=== PATIENT | female | born 1945 | race Caucasian/White ===

== ENCOUNTER 2018-03-08 13:08 | Outpatient (CLI) | payer MEDICARE, OTHER ==
--- NOTE | 2018-03-09 09:27 | Mammography Report ---
Reason: SCREENING MAMMO Procedure Date: 03/08/2018 Accession Number: [id number] / [id number] Procedure: SONU - Screening Mammo w/Milo CPT Code: FULL RESULT: EXAM: Screening Mammo w/Milo DATE: 03/08/2018 2:04 PM CLINICAL HISTORY: SCREENING MAMMO TECHNIQUE: Bilateral MLO and CC breast views COMPARISON: Mammogram 01/31/2015 FINDINGS: There are scattered fibroglandular densities. Right scar marker and clips are noted. There are benign-appearing calcifications. No dominant mass, architectural distortion, or concerning cluster of microcalcifications is seen. IMPRESSION: BI-RADS Category 2. Benign findings. Recommend annual screening mammogram. STANDARD QUALIFYING STATEMENTS: 1. This examination was not reviewed with the aid of Computer-Aided Detection (CAD). 2. A negative or benign imaging report should not delay biopsy if clinically suspicious findings are present. Consider surgical consultation if warrented. More than 5% of cancers are not identified by imaging. 3. Dense breasts may obscure an underlying neoplasm. 4. This examination was reviewed with the aid of 3D breast imaging (tomosynthesis).
== END 2018-03-08 13:09 | disposition home or self-care (01) ==
LOC: DI 13:08
PROVIDERS: ATTEND Nurse Practitioner Family
DX: Z12.31 Encounter for screening mammogram for malignant neoplasm of breast (principal)
CPT/HCPCS: 77063; 77067

== ENCOUNTER 2019-02-16 13:47 | Emergency (ER) | payer MEDICARE, OTHER ==
[2019-02-16] MEDS ORDERED: MORPHINE 10 MG/ML VIAL IVP STA (14:18)
[2019-02-16] MEDS ORDERED: ONDANSETRON 4 MG/2 ML VIAL IVP STA (14:18)
[2019-02-16] MEDS ORDERED: SODIUM CHLORIDE 0.9% 1,000 ML IV STA (14:18)
[2019-02-16 14:41] LABS: BASOPHILS % (AUTO) 0.6 %; EOSINOPHILS # (AUTO) 0.1 10^3/uL (0.0-0.7); EOSINOPHILS % (AUTO) 1.1 %; LYMPHOCYTES # (AUTO) 1.5 10^3/uL (1.5-3.5); MEAN CORPUSCULAR VOLUME 87.9 fL (81.0-99.0); MEAN PLATELET VOLUME 8.6 fL (7.9-10.8); MONOCYTES # (AUTO) 0.4 10^3/uL (0.0-1.0); MONOCYTES % (AUTO) 6.6 %; NEUTROPHILS # (AUTO) 4.4 10^3/uL (1.5-6.6); NEUTROPHILS % (AUTO) 68.4 %; PLT - PLATELET COUNT 262 10^3/uL (130-450); RED BLOOD COUNT 4.48 10^6/uL (4.20-5.40); RED CELL DISTRIBUTION WIDTH 12.9 % (12.0-15.0); WHITE BLOOD COUNT 6.4 x10^3/uL (4.8-10.8)
[2019-02-16 14:48] LABS: INR 1.1 (0.8-1.2); PT - PROTHROMBIN TIME 12.6 secs (9.9-12.6)
[2019-02-16 14:54] LABS: ALBUMIN/GLOBULIN RATIO 1.3 (1.0-2.2); CALCIUM 9.4 mg/dL (8.5-10.3); CREATININE 0.9 mg/dL (0.4-1.0); TOTAL PROTEIN 7.1 g/dL (6.7-8.2)
[2019-02-16] MEDS ORDERED: IOVERSOL 320 100 ML VIAL IVP ONE ×2 (15:11→15:27)
--- NOTE | 2019-02-16 15:32 | ED Physician Documentation ---
History of Present Illness - Stated complaint Stated Complaint: STOMACH PAIN - Chief complaint Chief Complaint: Abd Pain - Additonal information Additional information: This is a 73-year-old female with history of Mitral valve regurgitation, hiatal hernia, HTN, and possible biliary colic, who presents with epigastric pain after meals. Patient states that she ate some sweet meals and some rich meals yesterday and afterwards developed some pain in her epigastrium. She describes it as a dull ache, currently moderate in severity. She states she has had similar issues in the past and was diagnosed with biliary colic. She has some nausea but no vomiting. She denies urinary complaints. No chest pain or shortness of breath. 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 HEENT: Cataracts, Tonsil/Adenoidectomy - Present Medications Home Medications: Ambulatory Orders Medication Instructions Recorded Confirmed Atenolol 25 mg PO DAILY 10/01/14 01/04/16 Lisinopril 10 mg PO DAILY 10/01/14 01/04/16 - Allergies Allergies/Adverse Reactions: Allergies Allergy/AdvReac Type Severity Reaction Status Date / Time clindamycin Allergy Nausea Verified 02/16/19 14:27 formaldehyde Allergy Unknown Verified 02/16/19 14:27 lidocaine Allergy Unknown Verified 02/16/19 14:27 mercury (elemental) Allergy Unknown Verified 02/16/19 14:27 Penicillins Allergy Hives Verified 02/16/19 14:27 sulfite Allergy Unknown Verified 02/16/19 14:27 codeine AdvReac Nausea Verified 02/16/19 14:27 - Social History Does the pt smoke?: No Smoking Status: Never smoker Does the pt drink ETOH?: No Does the pt have substance abuse?: No - Immunizations Immunizations are current?: Yes - POLST Patient has POLST: No PD ED PE NORMAL - Vitals Vital signs reviewed: Yes - General General: Alert and oriented X 3, No acute distress - HEENT HEENT: PERRL - Neck Neck: Supple, no meningeal sign - Cardiac Cardiac: Other (Tachycardia, irregularly irregular rhythm) - Respiratory Respiratory: No respiratory distress, Clear bilaterally - Abdomen Abdomen: Other (Diffuse mild tenderness, more prominent in the epigastrium in the right lower quadrant.No guarding) - Derm Derm: Warm and dry - Extremities Extremities: No deformity - Neuro Neuro: Alert and oriented X 3, 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, No motor deficit, No sensory deficit - Psych Psych: Normal mood, Normal affect Results - Vitals Vitals: Vital Signs - 24 hr 02/16/19 02/16/19 02/16/19 13:59 16:06 16:25 Temperature 36.5 C Heart Rate 134 H 110 H 104 H Respiratory 18 20 20 Rate Blood Pressure 109/60 142/95 H 121/77 O2 Saturation 96 02/16/19 02/16/19 02/16/19 16:30 17:00 17:45 Temperature Heart Rate 111 H 101 H 132 H Respiratory 18 21 21 Rate Blood Pressure 117/83 H 140/125 H 125/79 O2 Saturation 97 97 02/16/19 02/16/19 02/16/19 18:00 18:30 19:00 Temperature 36.7 C Heart Rate 87 88 70 Respiratory 17 17 15 Rate Blood Pressure 112/78 109/77 111/54 L O2 Saturation 99 Oxygen O2 Source Room air - EKG (time done) 14:12 Other comments: Other comments (Rate 139, rhythm atrial fibrillation with rapid ventricular response. [place] is normal. There is no ST segment elevation or depression. Slight T wave inversion in V5 and V6. QTc 438) - Labs Labs: Laboratory Tests 02/16/19 02/16/19 02/16/19 14:35 14:35 14:35 WBC 6.4 RBC 4.48 Hgb 13.0 Hct 39.4 MCV 87.9 MCH 29.0 MCHC 33.0 RDW 12.9 Plt Count 262 MPV 8.6 Neut # (Auto) 4.4 Lymph # (Auto) 1.5 [place] # (Auto) 0.4 Eos # (Auto) 0.1 Baso # (Auto) 0.0 Absolute Nucleated RBC 0.00 Nucleated RBC % 0.0 PT 12.6 INR 1.1 Sodium 141 Potassium 4.2 Chloride 105 Carbon Dioxide 25 Anion Gap 11.0 BUN 20 Creatinine 0.9 Estimated GFR (MDRD) 61 L Glucose 122 H Calcium 9.4 Total Bilirubin 1.0 AST 19 ALT 15 Alkaline Phosphatase 51 Troponin I High Sens Total Protein 7.1 Albumin 4.0 Globulin 3.1 Albumin/Globulin Ratio 1.3 Lipase 30 Urine Color Urine Clarity Urine pH Ur Specific [place] Urine Protein Urine Glucose (UA) Urine Ketones Urine Occult Blood Urine Nitrite Urine Bilirubin Urine Urobilinogen Ur Leukocyte Esterase Urine RBC Urine WBC Ur Squamous Epith Cells Urine Bacteria Ur Microscopic Review Urine Culture Comments 02/16/19 02/16/19 14:35 17:45 WBC RBC Hgb Hct MCV MCH MCHC RDW Plt Count MPV Neut # (Auto) Lymph # (Auto) [place] # (Auto) Eos # (Auto) Baso # (Auto) Absolute Nucleated RBC Nucleated RBC % PT INR Sodium Potassium Chloride Carbon Dioxide Anion Gap BUN Creatinine Estimated GFR (MDRD) Glucose Calcium Total Bilirubin AST ALT Alkaline Phosphatase Troponin I High Sens 8.2 Total Protein Albumin Globulin Albumin/Globulin Ratio Lipase Urine Color LT. YELLOW Urine Clarity CLEAR Urine pH 8.0 H Ur Specific [place] <=1.005 Urine Protein NEGATIVE Urine Glucose (UA) NEGATIVE Urine Ketones 15 H Urine Occult Blood NEGATIVE Urine Nitrite NEGATIVE Urine Bilirubin NEGATIVE Urine Urobilinogen 0.2 (NORMAL) Ur Leukocyte Esterase TRACE H Urine RBC None Seen Urine WBC 0-3 Ur Squamous Epith Cells NONE SEEN Urine Bacteria None Seen Ur Microscopic Review INDICATED Urine Culture Comments INDICATED - Rads (name of study) CT abd/pelvis with IV contrast Radiology: See rad report PD MEDICAL DECISION MAKING - ED course Complexity details: considered differential (Gastritis, cholecystitis, biliary colic, cholelithiasis, ACS, dysrhythmia, atrial fibrillation, Electrolyte abnormality.) ED course: Patient presents with abdominal pain which is worsened after eating. On her exam she has some mild tenderness more in the epigastrium in the right lower quadrant. CT scan was performed and shows some uterine fibroids, no signs of gallbladder pathology or other acute abdominal pathology. Her laboratory studies are unrevealing. On repeat examination she is feeling well and her abdominal pain is resolved. Her abdomen is nontender. I discussed with her that she may have had some biliary colic, and she is to follow-up closely with her primary care provider on this. Given her pain has resolved and her abdomen is non-tender, no further imaging is needed today. I also discussed return precautions. Patient also has a history of GERD, and GERD/gastritis is another possible cause of her symptoms. Patient does have atrial fibrillation on the monitor, EKG is obtained and confirms atrial fibrillation. Troponin is negative. Patient is asymptomatic from this, she says occasionally she has mild lightheadedness, but none at this time. Troponin is negative. She states that when she takes her blood pressure Her machine will say "irregular", and she has noticed this for years. But she does not think that she has been previously diagnosed with atrial fibrillation. She was given a 5 mg push of metoprolol and her heart rate, which was initially in the 110s to 130s, came down nicely to the 70s to 90s. Patient is asymptomatic and would like to go home. She is already on atenolol. I discussed with her that she has a chads2-vasc score of 4 And I recommend that she starts anticoagulation. I explained the risk of stroke, I also discussed the potential risks of blood thinners, in her case I think the benefits outweigh the risks, however patient does not want to start anticoagulation. She does understand that she is at risk for stroke, and I had an in-depth conversation with her about this. She decided that she will call her primary care provider and discuss this further with him tomorrow. I recommended that she get an appointment with her primary care and/or her teletype clerk as soon as possible. I also discussed return precautions including lightheadedness, chest pain, shortness of breath, or any other concerning symptoms. Patient agreed and was discharged home. Departure - Departure Disposition: 01 Home, Self Care Clinical Impression: Abdominal pain Qualifiers: Abdominal location: epigastric Qualified Code(s): R10.13 - Epigastric pain Atrial fibrillation Qualifiers: Atrial fibrillation type: unspecified Qualified Code(s): I48.91 - Unspecified atrial fibrillation Condition: Good Instructions: ED Abdominal Pain Unkn Cause, ED Afib Follow-Up: Сергей Elias MD [Primary Care Provider] - Tomorrow (Call to schedule an appointment and discuss atrial fibrillation and anticoagulation/blood thinners) Comments: You were seen today for abdominal pain, your CT scan does not show an obvious cause of your pain. Your labs are reassuring. You were in atrial fibrillation and it is unclear if you were diagnosed with this in the past. Given your risk factors for stroke, I recommend that that you start a blood thinner to prevent stroke. You did not want to start this today, but I recommend that you talk with your primary care provider and make an appointment as soon as possible to discuss this further with them. You may also follow-up with a teletype clerk. If you develop lightheadedness, fainting, feelings of your heart racing, or chest pain, return to the emergency department. Discharge Date/Time: 02/16/19 19:20
--- NOTE | 2019-02-16 15:42 | CT Report ---
Reason: RLQ PAIN Procedure Date: 02/16/2019 Accession Number: [id number] / [id number] Procedure: CT - Abdomen/Pelvis W CPT Code: FULL RESULT: EXAM: CT ABDOMEN AND PELVIS EXAM DATE: 02/16/2019 03:22 PM. CLINICAL HISTORY: RLQ PAIN. COMPARISONS: None. TECHNIQUE: Routine helical CT imaging was performed through the abdomen and pelvis. IV contrast: CE. Enteric contrast: No. Reconstructions: Coronal and sagittal. In accordance with CT protocol optimization, one or more of the following dose reduction techniques were utilized for this exam: automated exposure control, adjustment of mA and/or KV based on patient size, or use of iterative reconstructive technique. FINDINGS: Lung Bases: Unremarkable. Liver: Normal. No masses. Gallbladder/Bile Ducts: Unremarkable. Spleen: Normal. Pancreas: Normal. Adrenal Glands: Normal. Kidneys: Normal. No masses or hydronephrosis. Peritoneal Cavity/Bowel: Normal. No free fluid, free air or adenopathy. No masses or acute inflammatory process. The appendix is not visualized, but there is no evidence of appendicitis. No evidence of diverticulitis. Pelvic Organs: Multiple small calcified uterine fibroids. In addition, there is an approximate 3.5 cm diameter broad-based exophytic left fundal subserosal fibroid seen best on coronal image 40, series 6. Vasculature: No aneurysms or other significant abnormality. Bones: No significant abnormality. Other: None. IMPRESSION: 1. Multiple uterine fibroids as discussed above. 2. Otherwise negative examination. RADIA
[2019-02-16] MEDS ORDERED: METOPROLOL 5 MG/5 ML VIAL IVP STA ×2 (15:58→18:13)
[2019-02-16 17:55] LABS: BILIRUBIN,URINE NEGATIVE (NEGATIVE); CLARITY,URINE CLEAR (CLEAR); GLUCOSE, URINE (UA) NEGATIVE (NEGATIVE); KETONES,URINE (UA) 15 mg/dL (NEGATIVE); LEUKOCYTE ESTERASE, URINE TRACE (NEGATIVE); NITRITE,URINE NEGATIVE (NEGATIVE); OCCULT BLOOD,URINE NEGATIVE (NEGATIVE); PROTEIN,URINE NEGATIVE (NEGATIVE); UROBILINOGEN,URINE 0.2 (NORMAL) E.U./dL (NORMAL)
[2019-02-16 18:04] LABS: BACTERIA,URINE None Seen /HPF (None Seen); RBC,URINE None Seen /HPF (0-5); SQUAMOUS EPITHELIAL CELL,UR NONE SEEN (<= Few)
[2019-02-16 19:20] VITALS: BP 111/54
== END 2019-02-16 19:20 | disposition home or self-care (01) ==
LOC: ED 13:47
DX: R10.13 Epigastric pain (principal); I48.91 Unspecified atrial fibrillation; I10 Essential (primary) hypertension; I34.0 Nonrheumatic mitral (valve) insufficiency; K21.9 Gastro-esophageal reflux disease without esophagitis; D25.9 Leiomyoma of uterus, unspecified
CPT/HCPCS: 36415; 74177; 80053; 81001; 83690; 84484; 85025; 85610; 87086; 93005; 96361; 96374; 96375; 99284; Q9967; 81003

== ENCOUNTER 2019-03-05 13:14 | Emergency (ER) | payer MEDICARE, OTHER ==
[2019-03-05] MEDS ORDERED: MAG HYDROX/AL HYDROX/SIMETH 30 ML UDC PO STA (13:50)
[2019-03-05] MEDS ORDERED: LIDOCAINE VISCOUS 2% 15 ML UDC MM STA (13:50)
--- NOTE | 2019-03-05 13:51 | ED Physician Documentation ---
PD HPI ABD PAIN - Stated complaint Stated Complaint: ABD PX - Chief complaint Chief Complaint: Abd Pain - History obtained from History obtained from: Patient - History of Present Illness Timing - onset: Yesterday (73-year-old woman with history of atrial fibrillation, not on anticoagulation has been having trouble with epigastric pain. She was seen here 2 weeks ago for it. Work-up was negative. She was feeling better but last night started to get pain again. It got much worse today after eating applesauce. Its epigastric nonradiating pain. It is sharp. 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 HEENT: Cataracts, Tonsil/Adenoidectomy - Present Medications Home Medications: Ambulatory Orders Medication Instructions Recorded Confirmed Atenolol 25 mg PO DAILY 10/01/14 01/04/16 Lisinopril 10 mg PO DAILY 10/01/14 01/04/16 Hydrocodone/Acetaminophen 1 - 2 each PO Q6H PRN #14 tablet 03/05/19 [Hydrocodon-Acetaminophen 5-325] Ondansetron Odt [Zofran] 4 mg TL Q6H PRN #10 tablet 03/05/19 - Allergies Allergies/Adverse Reactions: Allergies Allergy/AdvReac Type Severity Reaction Status Date / Time Penicillins Allergy Hives Verified 02/16/19 14:27 clindamycin AdvReac Nausea Verified 03/05/19 13:22 codeine AdvReac Nausea Verified 02/16/19 14:27 formaldehyde AdvReac Unknown Verified 03/05/19 13:22 lidocaine AdvReac Unknown Verified 03/05/19 13:22 mercury (elemental) AdvReac Unknown Verified 03/05/19 13:22 sulfite AdvReac Unknown Verified 03/05/19 13:22 - Social History Does the pt smoke?: No Smoking Status: Never smoker Does the pt drink ETOH?: No Does the pt have substance abuse?: No - Immunizations Immunizations are current?: Yes - POLST Patient has POLST: No PD ED PE NORMAL - Vitals Vital signs reviewed: Yes - General General: Alert and oriented X 3, No acute distress - HEENT HEENT: PERRL, EOMI - Neck Neck: Supple, no meningeal sign, No bony TTP - Cardiac Cardiac: Other (Irregularly irregular, no murmur) - Respiratory Respiratory: No respiratory distress, Clear bilaterally - Abdomen Abdomen: Soft, Non tender - Back Back: No CVA TTP, No spinal TTP - Derm Derm: Normal color, Warm and dry - Extremities Extremities: No edema, No calf tenderness / cord - Neuro Neuro: Alert and oriented X 3, Normal speech Results - Vitals Vitals: Vital Signs - 24 hr 03/05/19 13:17 Temperature 36.8 C Heart Rate 78 Respiratory 18 Rate Blood Pressure 148/81 H O2 Saturation 99 Oxygen O2 Source Room air - EKG (time done) 1420 Rate: Rate (enter#) (77) Rhythm: NSR (Frequent PACs) [place]: Normal Intervals: Normal [place] QRS: Normal Ischemia: Non specific changes Computer interpretation: Agree with computer - Labs Labs: Laboratory Tests 03/05/19 03/05/19 03/05/19 13:58 13:58 13:58 WBC 5.3 RBC 4.54 Hgb 12.9 Hct 39.7 MCV 87.4 MCH 28.4 MCHC 32.5 RDW 13.0 Plt Count 254 MPV 8.4 Neut # (Auto) 3.5 Lymph # (Auto) 1.3 L [place] # (Auto) 0.4 Eos # (Auto) 0.1 Baso # (Auto) 0.1 Absolute Nucleated RBC 0.00 Nucleated RBC % 0.0 Sodium 137 Potassium 4.2 Chloride 99 L Carbon Dioxide 26 Anion Gap 12.0 BUN 14 Creatinine 0.9 Estimated GFR (MDRD) 61 L Glucose 108 H Calcium 9.3 Total Bilirubin 1.0 AST 20 ALT 15 Alkaline Phosphatase 48 Troponin I High Sens 5.0 Total Protein 7.4 Albumin 4.2 Globulin 3.2 Albumin/Globulin Ratio 1.3 Lipase 30 TSH Thyroxine (T4) Free T3 pg/mL 03/05/19 03/05/19 13:58 13:58 WBC RBC Hgb Hct MCV MCH MCHC RDW Plt Count MPV Neut # (Auto) Lymph # (Auto) [place] # (Auto) Eos # (Auto) Baso # (Auto) Absolute Nucleated RBC Nucleated RBC % Sodium Potassium Chloride Carbon Dioxide Anion Gap BUN Creatinine Estimated GFR (MDRD) Glucose Calcium Total Bilirubin AST ALT Alkaline Phosphatase Troponin I High Sens Total Protein Albumin Globulin Albumin/Globulin Ratio Lipase TSH 1.48 Thyroxine (T4) 10.16 Free T3 pg/mL 3.53 - Rads (name of study) RUQ sono Radiology: EMP read contemporaneously (packed with stones) PD MEDICAL DECISION MAKING - ED course ED course: 73-year-old woman with recurrent upper abdominal pain, she is not tender and her labs are benign. She has a gallbladder that is packed full of gallstones and no evidence of cardiac decompensation. She is referred to a surgeon for likely biliary colic. Departure - Departure Disposition: Home, Self Care Clinical Impression: Biliary colic Condition: Good Record reviewed to determine appropriate education?: Yes Instructions: ED Abdominal Pain Gallstone Poss Follow-Up: Sara Vinson MD [Provider Admit Priv/Credential] - Prescriptions: Hydrocodone/Acetaminophen [Hydrocodon-Acetaminophen 5-325] 1 - 2 each PO Q6H PRN #14 tablet PRN Reason: pain Ondansetron Odt [Zofran] 4 mg TL Q6H PRN #10 tablet PRN Reason: Nausea / Vomiting Comments: Follow-up with the surgeon as soon as possible. Eat a very light diet until then. Return for new worsening symptoms.
[2019-03-05 14:04] LABS: BASOPHILS # (AUTO) 0.1 10^3/uL (0.0-0.1); BASOPHILS % (AUTO) 0.9 %; EOSINOPHILS # (AUTO) 0.1 10^3/uL (0.0-0.7); EOSINOPHILS % (AUTO) 2.4 %; HGB - HEMOGLOBIN 12.9 g/dL (12.0-16.0); LYMPHOCYTES # (AUTO) 1.3 10^3/uL (1.5-3.5); LYMPHOCYTES % (AUTO) 24.4 %; MEAN CORPUSCULAR HEMOGLOBIN 28.4 pg (27.0-31.0); MEAN CORPUSCULAR HGB CONC 32.5 g/dL (32.0-36.0); MEAN CORPUSCULAR VOLUME 87.4 fL (81.0-99.0); MEAN PLATELET VOLUME 8.4 fL (7.9-10.8); MONOCYTES # (AUTO) 0.4 10^3/uL (0.0-1.0); MONOCYTES % (AUTO) 7.1 %; NEUTROPHILS # (AUTO) 3.5 10^3/uL (1.5-6.6); PLT - PLATELET COUNT 254 10^3/uL (130-450); RED BLOOD COUNT 4.54 10^6/uL (4.20-5.40); WHITE BLOOD COUNT 5.3 x10^3/uL (4.8-10.8)
[2019-03-05 14:17] LABS: ALBUMIN 4.2 g/dL (3.2-5.5); ALBUMIN/GLOBULIN RATIO 1.3 (1.0-2.2); CALCIUM 9.3 mg/dL (8.5-10.3); CREATININE 0.9 mg/dL (0.4-1.0); TOTAL PROTEIN 7.4 g/dL (6.7-8.2)
[2019-03-05] MEDS ORDERED: ONDANSETRON ODT 4 MG TABLET TL STA (14:34)
[2019-03-05 15:02] LABS: T4 (THYROXINE) 10.16 ug/dL (6.09-12.23)
[2019-03-05 15:05] LABS: THYROID STIMULATING HORMONE 1.48 uIU/mL (0.34-5.60)
--- NOTE | 2019-03-05 16:21 | Ultrasound Report ---
Reason: upper abd pain Procedure Date: 03/05/2019 Accession Number: [id number] / [id number] Procedure: US - Abdomen Limited CPT Code: FULL RESULT: EXAM: ABDOMEN ULTRASOUND LIMITED, RIGHT UPPER QUADRANT EXAM DATE: 03/05/2019 03:56 PM. CLINICAL HISTORY: Epigastric and upper abdominal pain since January, worsening since yesterday. Nausea. History of breast cancer. COMPARISON: ABDOMEN/PELVIS W/ 02/16/2019 3:14 PM. TECHNIQUE: Real-time scanning was performed with static images obtained. FINDINGS: Liver: Normal in size with heterogeneous echotexture.12.7 cm. Main portal vein flow: Hepatopetal. Gallbladder: Complete shadowing of the gallbladder fossa with no internal detail. The gallbladder wall does not appear thickened. Overlying tenderness noted. Biliary System: CBD measures 4 mm. No intrahepatic or extrahepatic ductal dilatation. Other: The visualized pancreas and right kidney are unremarkable. IMPRESSION: Complete shadowing of the gallbladder fossa likely due to a gallbladder full of stones. RADIA
[2019-03-05 16:51] VITALS: BP 176/87
== END 2019-03-05 17:06 | disposition home or self-care (01) ==
LOC: ED 13:14
DX: K80.50 Calculus of bile duct without cholangitis or cholecystitis without obstruction (principal); I10 Essential (primary) hypertension
CPT/HCPCS: 36415; 76705; 80053; 83690; 84436; 84443; 84481; 84484; 85025; 93005; 99284; A9270; Q0162

== ENCOUNTER 2019-04-04 09:42 | Day surgery (SDC) | payer MEDICARE, OTHER ==
[~2019-04-04 09:42] MED LIST: LEVOFLOXACIN IV ONE
[2019-04-04 09:56] VITALS: BP 144/78
--- NOTE | 2019-04-04 10:46 | CONSULTATION NOTE ---
Consultation Report: Patient is in the Afib RVR Hr upto 140's Bp stable. Reports being in AFib for a "coupe of months". 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 She has not see a field operations farm manager. We are getting an EKG. Dr Vinson was made aware and she agrees with not going forward with the surgery. Pt needs a thorough cardiac evaluation prior to her surgery. Dr Vinson was call the hospitalist and have them see the patient for further followup.
== END 2019-04-04 09:43 | disposition home or self-care (01) ==
LOC: SDS 09:42
PROVIDERS: ATTEND Surgery
DX: I48.91 Unspecified atrial fibrillation (principal); Z53.09 Procedure and treatment not carried out because of other contraindication; K80.20 Calculus of gallbladder without cholecystitis without obstruction; I10 Essential (primary) hypertension; I34.0 Nonrheumatic mitral (valve) insufficiency; K44.9 Diaphragmatic hernia without obstruction or gangrene
CPT/HCPCS: 93005

== ENCOUNTER 2019-04-04 10:55 | Emergency (ER) | payer MEDICARE, OTHER ==
[2019-04-04 11:35] LABS: BASOPHILS % (AUTO) 0.6 %; EOSINOPHILS # (AUTO) 0.1 10^3/uL (0.0-0.7); EOSINOPHILS % (AUTO) 1.8 %; HGB - HEMOGLOBIN 13.3 g/dL (12.0-16.0); LYMPHOCYTES # (AUTO) 1.2 10^3/uL (1.5-3.5); LYMPHOCYTES % (AUTO) 18.5 %; MEAN CORPUSCULAR HEMOGLOBIN 29.6 pg (27.0-31.0); MEAN CORPUSCULAR HGB CONC 33.2 g/dL (32.0-36.0); MEAN CORPUSCULAR VOLUME 89.1 fL (81.0-99.0); MEAN PLATELET VOLUME 8.7 fL (7.9-10.8); MONOCYTES # (AUTO) 0.4 10^3/uL (0.0-1.0); MONOCYTES % (AUTO) 7.1 %; NEUTROPHILS # (AUTO) 4.5 10^3/uL (1.5-6.6); NEUTROPHILS % (AUTO) 71.7 %; PLT - PLATELET COUNT 240 10^3/uL (130-450); RED CELL DISTRIBUTION WIDTH 13.5 % (12.0-15.0); WHITE BLOOD COUNT 6.2 x10^3/uL (4.8-10.8)
[2019-04-04 11:45] LABS: ALBUMIN 3.9 g/dL (3.2-5.5); ALBUMIN/GLOBULIN RATIO 1.3 (1.0-2.2); CALCIUM 9.8 mg/dL (8.5-10.3); CREATININE 1.1 mg/dL (0.4-1.0); TOTAL PROTEIN 6.8 g/dL (6.7-8.2)
--- NOTE | 2019-04-04 12:27 | XRAY Report ---
Reason: Irregular HR Procedure Date: 04/04/2019 Accession Number: [id number] / [id number] Procedure: XR - Chest 1 View X-Ray CPT Code: 04385 Final Report FULL RESULT: EXAM: CHEST RADIOGRAPHY EXAM DATE: 04/04/2019 12:02 PM. CLINICAL HISTORY: Irregular heart rate. COMPARISON: CHEST 2 VIEW PA/LAT 01/04/2016 10:55 AM. TECHNIQUE: 1 view. FINDINGS: Lungs/Pleura: No focal opacities evident. No pleural effusion. No pneumothorax. Mediastinum: Within exam limitations, the cardiomediastinal contour is stable in size and configuration with calcification of the aortic arch. Other: None. IMPRESSION: No acute cardiopulmonary abnormality. RADIA
--- NOTE | 2019-04-04 12:43 | ED Physician Documentation ---
History of Present Illness - Stated complaint Stated Complaint: AFIB/SENT BY SDS - Chief complaint Chief Complaint: Cardiac - Additonal information Additional information: This is a 73-year-old female history of mitral valve regurgitation, hiatal hernia, cholelithiasis, hypertension, who presents after being sent to the emergency department from the preop area and due to atrial fibrillation with RVR. I saw patient just over 1 month ago, she was found to be in atrial fibrillation but she declined starting anticoagulants at that time despite having a a chads 2 Vasc score which put her at moderate risk for a stroke. She has not been able see her sat tutor yet to further discuss her atrial fibrillation. Today she went in to have a cholecystectomy, she was found to have atrial fibrillation with RVR with heart rate up to 140. She had a normal blood pressure and an is overall asymptomatic, other than she feels slightly lower energy than usual. She states that she attributes to her lower energy to change in her diet, she is eating less than usual because she is been trying to avoid foods that worsen her biliary colic. She denies any chest pain or shortness of breath, no cough. Review of Systems Constitutional: denies: Fever Throat: denies: Dental pain / toothache Cardiac: denies: Chest pain / pressure Respiratory: denies: Dyspnea : denies: Dysuria PD PAST MEDICAL HISTORY - Past Medical History Cardiovascular: Hypertension, Atrial fibrillation, Murmur Respiratory: Shortness of breath Endocrine/Autoimmune: None GI: GERD, Chronic diarrhea : Incontinence, Chronic bladder infection HEENT: Chronic vision loss, Other Psych: None Musculoskeletal: Osteoarthritis, Fibromyalgia, Chronic back pain Derm: None - Past Surgical History Past Surgical History: Yes General: Colonoscopy, EGD, Other Ortho: 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: Other HEENT: Cataracts, Tonsil/Adenoidectomy - Present Medications Home Medications: Ambulatory Orders Medication Instructions Recorded Confirmed Atenolol 12.5 mg PO BID 10/01/14 04/04/19 Lisinopril 10 mg PO DAILY 10/01/14 04/04/19 Bismuth Subsalicylate 1 tab PO ONCE PRN 03/23/19 04/04/19 [Pepto-Bismol] Lactobacillus Acidophilus 1 each PO DAILY 03/23/19 04/04/19 [Probiotic Acidophilus] Magnesium 0.5 tsp PO DAILY 03/23/19 04/04/19 Apixaban [Eliquis] 5 mg PO BID #30 tab.ds.pk 04/04/19 - Allergies Allergies/Adverse Reactions: Allergies Allergy/AdvReac Type Severity Reaction Status Date / Time Penicillins Allergy Hives Verified 02/16/19 14:27 acetaminophen [From Vicodin] AdvReac GERD, Verified 03/23/19 14:20 abdominal pain aluminum AdvReac Unknown Verified 03/23/19 14:20 cephalexin [From Keflex] AdvReac stomach Verified 03/23/19 14:20 pain ciprofloxacin [From Cipro] AdvReac stomach Verified 03/23/19 14:20 pain clindamycin AdvReac Nausea Verified 03/05/19 13:22 codeine AdvReac Nausea Verified 02/16/19 14:27 erythromycin base AdvReac diarrhea, Verified 03/23/19 14:20 bladder pain formaldehyde AdvReac Unknown Verified 03/05/19 13:22 hydrocodone [From Vicodin] AdvReac GERD, Verified 03/23/19 14:20 abdominal pain ibuprofen [From Advil] AdvReac stomach Verified 03/23/19 14:20 pain lidocaine AdvReac Nausea, Verified 03/23/19 14:20 low BP meloxicam AdvReac GERD, Verified 03/23/19 14:20 abdominal pain mercury (elemental) AdvReac Unknown Verified 03/05/19 13:22 metronidazole [From Flagyl] AdvReac stomach Verified 03/23/19 14:20 pain naproxen AdvReac stomach Verified 03/23/19 14:20 pain pantoprazole [From Protonix] AdvReac GERD, Verified 03/23/19 14:20 diarrhea sulfite AdvReac Unknown Verified 03/05/19 13:22 - Social History Does the pt smoke?: No Smoking Status: Never smoker Does the pt drink ETOH?: No Does the pt have substance abuse?: No - Immunizations Immunizations are current?: Yes - POLST Patient has POLST: No PD ED PE NORMAL - Vitals Vital signs reviewed: Yes - General General: Alert and oriented X 3 - HEENT HEENT: Atraumatic - Neck Neck: Supple, no meningeal sign - Cardiac Cardiac: Other (Irregularly irregular rhythm, normal rate.) - Respiratory Respiratory: No respiratory distress, Clear bilaterally - Abdomen Abdomen: Normal bowel sounds, Soft, Non tender, Non distended - Extremities Extremities: No deformity - Neuro Neuro: Alert and oriented X 3, 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, No motor deficit, No sensory deficit, Normal speech Results - Vitals Vitals: Oxygen O2 Source Room air - EKG (time done) 11:17 Other comments: Other comments (Rate 80, rhythm a-fib, NO ST segment changes or T wave inversions) - Labs Labs: Laboratory Tests 04/04/19 04/04/19 04/04/19 11:29 11:29 11:29 WBC 6.2 RBC 4.50 Hgb 13.3 Hct 40.1 MCV 89.1 MCH 29.6 MCHC 33.2 RDW 13.5 Plt Count 240 MPV 8.7 Neut # (Auto) 4.5 Lymph # (Auto) 1.2 L [place] # (Auto) 0.4 Eos # (Auto) 0.1 Baso # (Auto) 0.0 Absolute Nucleated RBC 0.00 Nucleated RBC % 0.0 Sodium 135 Potassium 4.2 Chloride 99 L Carbon Dioxide 25 Anion Gap 11.0 BUN 12 Creatinine 1.1 H Estimated GFR (MDRD) 48 L Glucose 110 H Calcium 9.8 Magnesium 2.0 Total Bilirubin 1.0 AST 23 ALT 20 Alkaline Phosphatase 42 Troponin I High Sens B-Natriuretic Peptide Total Protein 6.8 Albumin 3.9 Globulin 2.9 Albumin/Globulin Ratio 1.3 Lipase 31 TSH 04/04/19 04/04/19 04/04/19 11:29 11:29 11:29 WBC RBC Hgb Hct MCV MCH MCHC RDW Plt Count MPV Neut # (Auto) Lymph # (Auto) [place] # (Auto) Eos # (Auto) Baso # (Auto) Absolute Nucleated RBC Nucleated RBC % Sodium Potassium Chloride Carbon Dioxide Anion Gap BUN Creatinine Estimated GFR (MDRD) Glucose Calcium Magnesium Total Bilirubin AST ALT Alkaline Phosphatase Troponin I High Sens 6.4 B-Natriuretic Peptide 178 H Total Protein Albumin Globulin Albumin/Globulin Ratio Lipase TSH 1.19 - Rads (name of study) CXR Radiology: Other (No acute cardiopulmonary abnormality) PD MEDICAL DECISION MAKING - ED course Complexity details: considered differential (ACS, dysrhtyhmia, A-fib, stroke risk) ED course: Pt is asymptomatic but was sent in from pre-op for a-fib with RVR that resolved without intervention. EKG confirms a-fib, which she has had for months and likely even longer given she has noted irregular pulses on her BP cuff for years. Troponin negative, BNP very slightly elevated, remainder of labs unrevealing. She is rate controlled. I discussed that she needs to follow with her PCP and sat tutor. I discussed her stroke vs bleed risk and went over her [id number] score with her. She would like to start anticoagulation and I prescribed eliquis with discussion of its risks and the need for close follow up and further discussion with her sat tutor and PCP. I spoke with her surgeon who wants her cleared by cardiology before she can have her cholecystectomy - this information passed on to patient. Return precautions discussed and patient was discharged home. Departure - Departure Disposition: 01 Home, Self Care Clinical Impression: Atrial fibrillation Instructions: ED Afib Follow-Up: Сергей Elias MD [Primary Care Provider] - (Call today for follow up as soon as possible and cardiac referral) Prescriptions: Apixaban [Eliquis] 5 mg PO BID #30 tab.ds.pk Comments: You were seen today because of atrial fibrillation prior to her surgery. You are at a moderate risk of stroke, I recommend starting the Eliquis/apixaban medication for this. Please discuss this medication in depth with your primary care provider as well as your sat tutor. I am prescribing you 2 weeks worth of the medication, you will need to get refills from your primary care provider after this. This is a blood thinner, and when you take it you are at increased risk for bleeding. Call your primary care provider today to establish follow-up as soon as possible, ideally with an a week, and for referral to sat tutor. You need to have cardiac work-up performed prior to receiving your gallbladder surgery. If you develop chest pain, shortness of breath, or other concerning symptoms return to the emergency department. Discharge Date/Time: 04/04/19 14:23
[2019-04-04] MEDS ORDERED: APIXABAN 5 MG TABLET PO STA (13:51)
[2019-04-04 14:02] VITALS: BP 113/62
== END 2019-04-04 14:23 | disposition home or self-care (01) ==
LOC: ED 10:55
DX: I48.91 Unspecified atrial fibrillation (principal); K80.20 Calculus of gallbladder without cholecystitis without obstruction; I10 Essential (primary) hypertension; I34.0 Nonrheumatic mitral (valve) insufficiency; K44.9 Diaphragmatic hernia without obstruction or gangrene
CPT/HCPCS: 36415; 71045; 80053; 83690; 83735; 83880; 84443; 84484; 85025; 93005; 99283; A9270

== ENCOUNTER 2019-05-03 14:49 | Outpatient (CLI) | payer MEDICARE, OTHER ==
[2019-05-03 15:21] LABS: ALBUMIN 4.2 g/dL (3.2-5.5); ALBUMIN/GLOBULIN RATIO 1.3 (1.0-2.2); BILIRUBIN,TOTAL 1.2 mg/dL (0.2-1.0); CALCIUM 9.8 mg/dL (8.5-10.3); CREATININE 0.9 mg/dL (0.4-1.0); TOTAL PROTEIN 7.5 g/dL (6.7-8.2)
[2019-05-03 16:01] LABS: BASOPHILS # (AUTO) 0.1 10^3/uL (0.0-0.1); BASOPHILS % (AUTO) 0.7 %; EOSINOPHILS # (AUTO) 0.2 10^3/uL (0.0-0.7); EOSINOPHILS % (AUTO) 2.3 %; LYMPHOCYTES # (AUTO) 1.6 10^3/uL (1.5-3.5); MEAN CORPUSCULAR HEMOGLOBIN 29.6 pg (27.0-31.0); MEAN CORPUSCULAR HGB CONC 32.5 g/dL (32.0-36.0); MEAN CORPUSCULAR VOLUME 91.1 fL (81.0-99.0); MEAN PLATELET VOLUME 9.2 fL (7.9-10.8); MONOCYTES # (AUTO) 0.5 10^3/uL (0.0-1.0); MONOCYTES % (AUTO) 7.3 %; NEUTROPHILS # (AUTO) 4.6 10^3/uL (1.5-6.6); NEUTROPHILS % (AUTO) 66.4 %; PLT - PLATELET COUNT 331 10^3/uL (130-450); RED BLOOD COUNT 4.39 10^6/uL (4.20-5.40); RED CELL DISTRIBUTION WIDTH 14.6 % (12.0-15.0)
== END 2019-05-03 14:50 | disposition home or self-care (01) ==
LOC: LAB 14:49
PROVIDERS: ATTEND Physician Assistant Medical
DX: Z13.6 Encounter for screening for cardiovascular disorders (principal); Z79.899 Other long term (current) drug therapy
CPT/HCPCS: 36415; 80053; 85025

== ENCOUNTER 2019-05-16 07:15 | Day surgery (SDC) | payer MEDICARE, OTHER ==
[~2019-05-16 07:15] MED LIST changes: -LEVOFLOXACIN IV ONE; +levoFLOXacin 500 MG/100 ML 500 MG/100 ML BAG IV ONE
[2019-05-16] MEDS ORDERED: LACTATED RINGERS 1,000 ML IV ONE (08:05)
[2019-05-16] MEDS ORDERED: BUPIVACAINE 0.5% PF 30 ML VIAL ONE (08:30)
--- NOTE | 2019-05-16 08:31 | ANESTHESIA ---
Pre-Anesthesia VS, & Labs - Diagnosis cholelithiasis - Procedure laparoscopic cholecystectomy Vital Signs: Temp Pulse Resp BP Pulse Ox 36.8 C 100 16 109/95 H 100 05/16/19 07:45 05/16/19 07:45 05/16/19 07:45 05/16/19 07:45 05/16/19 07:45 Height 5 ft 9 in Weight (kg) 103.8 kg Body Mass Index 34.2 - NPO >8 hours - Is Patient ?: No - Lab Results Lab results reviewed: Yes Home Medications and Allergies Home Medications: Ambulatory Orders Apixaban [Eliquis] 2.5 mg PO BID 05/03/19 Metoprolol Tartrate 1 mg PO BID 05/03/19 Omeprazole 20 mg PO DAILY 05/04/19 Apixaban [Eliquis] 2.5 mg PO BID 05/03/19 Metoprolol Tartrate 1 mg PO BID 05/03/19 Omeprazole 20 mg PO DAILY 05/04/19 Allergies/Adverse Reactions: Allergies Allergy/AdvReac Type Severity Reaction Status Date / Time Penicillins Allergy Hives Verified 02/16/19 14:27 acetaminophen [From Vicodin] AdvReac GERD, Verified 03/23/19 14:20 abdominal pain aluminum AdvReac Unknown Verified 03/23/19 14:20 cephalexin [From Keflex] AdvReac stomach Verified 03/23/19 14:20 pain ciprofloxacin [From Cipro] AdvReac stomach Verified 03/23/19 14:20 pain clindamycin AdvReac Nausea Verified 03/05/19 13:22 codeine AdvReac Nausea Verified 02/16/19 14:27 erythromycin base AdvReac diarrhea, Verified 03/23/19 14:20 bladder pain formaldehyde AdvReac Unknown Verified 03/05/19 13:22 hydrocodone [From Vicodin] AdvReac GERD, Verified 03/23/19 14:20 abdominal pain ibuprofen [From Advil] AdvReac stomach Verified 03/23/19 14:20 pain lidocaine AdvReac Nausea, Verified 03/23/19 14:20 low BP meloxicam AdvReac GERD, Verified 03/23/19 14:20 abdominal pain mercury (elemental) AdvReac Unknown Verified 03/05/19 13:22 metronidazole [From Flagyl] AdvReac stomach Verified 03/23/19 14:20 pain naproxen AdvReac stomach Verified 03/23/19 14:20 pain pantoprazole [From Protonix] AdvReac GERD, Verified 03/23/19 14:20 diarrhea sulfite AdvReac Unknown Verified 03/05/19 13:22 Anes History & Medical History - Anesthetic History Anesthesia Complications: reports: No previous complications Family history of Anesthesia Complications: Denies Family history of Malignant Hyperthermia: Denies - Medical History Cardiovascular: reports: Hypertension, Atrial fibrillation, Murmur Pulmonary: reports: Shortness of breath Gastrointestinal: reports: GERD, Chronic diarrhea Urinary: reports: Incontinence, Chronic bladder infection Musculoskeletal: reports: Osteoarthritis, Fibromyalgia, Chronic back pain Endocrine/Autoimmune: reports: None Skin: reports: None Smoking Status: Never smoker - Surgical History General: Colonoscopy, EGD, Other Eyes Ears Nose Throat (EENT): Cataracts, Tonsil/Adenoidectomy Gynecologic: Other Orthopedic: Knee replacement Exam General: Alert, Oriented x3, Cooperative Dental: Dentures full Upper, Dentures full Lower Mouth Openin Fingerbreadth Neck Mobility: Normal Mallampati classification: II Thyromental Distance: 4-6 cm Respiratory: Lungs clear, Normal breath sounds Cardiovascular: Regular rate Mental/Cognitive Status: Alert/Oriented X3, Normal for patient Plan Anesthesia Type: General Regional Block: Per Surgeon's request for Post Op pain control Consent for Procedure(s) Verified and Reviewed: Yes Code Status: Attempt Resuscitation ASA classification: 3-Severe systemic disease Is this case an emergency?: No
[2019-05-16] MEDS ORDERED: NEOSTIGMINE 1 MG/1 ML 10 ML MDV IVP ONE (08:52)
[2019-05-16] MEDS ORDERED: KETOROLAC 30 MG/ML VIAL IVP ONE (08:52)
[2019-05-16] MEDS ORDERED: DEXAMETHASONE 4 MG/ML VIAL IVP ONE (08:52)
[2019-05-16] MEDS ORDERED: METOPROLOL 5 MG/5 ML VIAL IVP ONE (08:52)
[2019-05-16] MEDS ORDERED: PROPOFOL 200 MG/20 ML VIAL IVP ONE (08:52)
[2019-05-16] MEDS ORDERED: GLYCOPYRROLATE 1 MG/5 ML VIAL IVP ONE (08:52)
[2019-05-16] MEDS ORDERED: PHENYLEPHRINE 50 MG/5 ML VIAL IV ONE (08:52)
[2019-05-16] MEDS ORDERED: ROCURONIUM 50 MG/5 ML VIAL IVP ONE (08:52)
[2019-05-16] MEDS ORDERED: ACETAMINOPHEN 1,000 MG/100 ML 100 ML IV ONE (08:52)
[2019-05-16] MEDS ORDERED: ONDANSETRON 4 MG/2 ML VIAL IVP ONE (08:52)
[2019-05-16] MEDS ORDERED: fentaNYL 250 MCG/5 ML VIAL IVP ONE (08:52)
[2019-05-16] MEDS ORDERED: METOCLOPRAMIDE 10 MG/2 ML VIAL IVP ONE (08:52)
[2019-05-16] MEDS ORDERED: BUPIVACAINE 0.5% PF 30 ML VIAL INFIL ONE (09:24)
[2019-05-16] MEDS ORDERED: ACETAMINOPHEN 325 MG TABLET PO PRN (09:42)
[2019-05-16] MEDS ORDERED: ONDANSETRON 4 MG/2 ML VIAL IVP PRN (09:42)
[2019-05-16] MEDS ORDERED: oxyCODONE 5 MG TABLET PO PRN (09:42)
[2019-05-16] MEDS ORDERED: SUGAMMADEX 200 MG/2 ML VIAL IVP ONE (09:52)
--- NOTE | 2019-05-16 10:04 | OPERATIVE REPORT ---
Operative Report - General Procedure Date: 05/16/19 Planned Procedure: Laparoscopic Cholecystectomy Pre-Op Diagnosis: Symptomatic cholelithiasis Procedure Performed: Laparoscopic Cholecystectomy Post Op Diagnosis: Symptomatic cholelithiasis - Procedure Note Primary Surgeon: Karel Anesthesia Provider: NISHI Robles Anesthesia Technique: General ET tube, Local Pathology: Gall bladder in formalin to pathology IV Fluids (mL): 250 Estimated Blood Loss (mL): 10 Findings: Gall bladder filled with small stones Complications: None apparent - Other Other Information/Narrative: After obtaining informed consent the patient is brought to the operating room and placed in the supine position on the operating table. Following successful induction of general endotracheal anesthesia, appropriate padding of all bony prominences, and placement of appropriate monitors, the abdomen was prepped and draped in the standard surgical fashion. A timeout was held per scope protocol. All elements of the surgical safety checklist were followed before, during, and after the procedure. Following infiltration with local anesthetic to create a field block, an incision was created inferior to the umbilicus and carried down through the skin and subcutaneous tissue to reveal the fascia below. 2-0 Vicryl retention sutures were placed on either side of the midline and the abdomen was entered under direct vision using a 15 blade scalpel. A 10 mm blunt Nagel balloon trocar was placed in the abdominal cavity and it was insufflated to 15 mmHg pressure. The patient was placed in reverse Trendelenburg position with the left side rotated toward the floor. A second trocar, 5 mm, was placed in the midepigastrium under direct vision and after anesthetization of the surrounding skin.A third trocar, also 5 mm was placed in the right upper quadrant for retraction of the gallbladder and a fourth 1 just medial to that as a working port as well. The gallbladder was examined. It was adherent to the surrounding structures including the omentum and the right colon. These structures were carefully dissected free from the surface of the gallbladder using a mixture of blunt and sharp dissection. The fundus of the gallbladder was then grasped and elevated up over the liver revealing the cholecysto hepatoduodenal ligament. The neck of the gallbladder was retracted laterally and the cystic duct and artery were carefully identified. The common duct was visualized but not skeletonized. The cystic duct was clipped 3 times proximally and once distally and divided, the cystic artery was clipped twice proximally, once distally, and divided. The gallbladder was then liberated from its bed in the liver using cautery. It was placed in an Endo Catch bag and removed via the umbilical port with a camera in the epigastric position. The camera was replaced in the umbilical position and the abdomen was checked for hemostasis. It was irrigated with warm saline solution and aspirated free of all fluid and particulate matter. The trochars were then removed under direct vision and the abdomen desufflated. The umbilical incision was closed with interrupted Vicryl suture and Monocryl was placed in all of the skin incisions. All sponge, needle, and instrument counts were correct at the conclusion of the case. The patient was allowed awaken from anesthesia without difficulty and taken to the postanesthesia care unit in good condition.
[2019-05-16 10:57] VITALS: BP 117/68
== END 2019-05-16 07:16 | disposition home or self-care (01) ==
LOC: SDS 07:15
PROVIDERS: ATTEND Surgery
PROC: 0FT44ZZ Resection of Gallbladder, Percutaneous Endoscopic Approach (ICD-10-PCS; principal; 2019-05-16 08:45)
DX: K80.64 Calculus of gallbladder and bile duct with chronic cholecystitis without obstruction (principal); I48.91 Unspecified atrial fibrillation; I10 Essential (primary) hypertension; R01.1 Cardiac murmur, unspecified; Z85.3 Personal history of malignant neoplasm of breast; E88.81 Metabolic syndrome and other insulin resistance
CPT/HCPCS: 47562; J0131; J2765; J3010; J7120

== ENCOUNTER 2019-05-30 12:39 | Inpatient (IN) | payer MEDICARE, OTHER ==
[2019-05-30 13:49] LABS: BASOPHILS # (AUTO) 0.1 10^3/uL (0.0-0.1); BASOPHILS % (AUTO) 0.9 %; EOSINOPHILS # (AUTO) 0.1 10^3/uL (0.0-0.7); EOSINOPHILS % (AUTO) 1.8 %; HGB - HEMOGLOBIN 11.9 g/dL (12.0-16.0); LYMPHOCYTES # (AUTO) 1.3 10^3/uL (1.5-3.5); LYMPHOCYTES % (AUTO) 19.5 %; MEAN CORPUSCULAR HEMOGLOBIN 29.8 pg (27.0-31.0); MEAN CORPUSCULAR HGB CONC 32.2 g/dL (32.0-36.0); MEAN CORPUSCULAR VOLUME 92.5 fL (81.0-99.0); MEAN PLATELET VOLUME 8.8 fL (7.9-10.8); MONOCYTES # (AUTO) 0.5 10^3/uL (0.0-1.0); MONOCYTES % (AUTO) 7.2 %; NEUTROPHILS # (AUTO) 4.8 10^3/uL (1.5-6.6); NEUTROPHILS % (AUTO) 70.3 %; PLT - PLATELET COUNT 261 10^3/uL (130-450); RED BLOOD COUNT 3.99 10^6/uL (4.20-5.40); RED CELL DISTRIBUTION WIDTH 15.1 % (12.0-15.0); WHITE BLOOD COUNT 6.8 x10^3/uL (4.8-10.8)
[2019-05-30 14:02] LABS: ALBUMIN 3.9 g/dL (3.2-5.5); ALBUMIN/GLOBULIN RATIO 1.3 (1.0-2.2); BILIRUBIN,TOTAL 1.2 mg/dL (0.2-1.0); CALCIUM 9.8 mg/dL (8.5-10.3); CREATININE 0.9 mg/dL (0.4-1.0); TOTAL PROTEIN 6.8 g/dL (6.7-8.2)
--- NOTE | 2019-05-30 14:24 | XRAY Report ---
Reason: dyspnea Procedure Date: 05/30/2019 Accession Number: [id number] / [id number] Procedure: XR - Chest 2 View X-Ray CPT Code: 68144 Final Report FULL RESULT: EXAM: CHEST RADIOGRAPHY EXAM DATE: 05/30/2019 02:10 PM. CLINICAL HISTORY: Dyspnea. Shortness of breath x1 month, worse for the past 2 weeks. COMPARISON: CHEST 1 VIEW 04/04/2019 11:36 AM CHEST 2 VIEW PA/LAT 01/04/2016 10:55 AM. TECHNIQUE: 2 views. FINDINGS: Lungs/Pleura: There are small bilateral pleural effusions. No pneumothorax. No focal pulmonary consolidation. Lung volumes are normal. Mediastinum: Heart and mediastinal contours are unremarkable. There is mild atherosclerotic calcification of the aortic arch. Other: No acute osseous abnormality. There are moderate degenerative changes of the left glenohumeral joint. IMPRESSION: Small bilateral pleural effusions. No focal pulmonary consolidation. RADIA
[2019-05-30] MEDS ORDERED: METOPROLOL 5 MG/5 ML VIAL IVP STA ×2 (14:56→22:18)
--- NOTE | 2019-05-30 14:59 | ED Physician Documentation ---
History of Present Illness - Stated complaint Stated Complaint: SOA/MEDICATION ISSUES - Chief complaint Chief Complaint: Cardiac - Additonal information Additional information: This is a 74-year-old female with a history of atrial fibrillation, on Eliquis and metoprolol, presents with elevated heart rate as well as shortness of breath. Patient was on metoprolol 50 mg twice a day but she was concerned that it was causing her to have some esophageal discomfort, and she thought it may have some other side effects she was not aware of, so she self tapered down to 25 mg twice a day. Over the last 3 to 4 weeks she has had some gradual in creasing shortness of breath and swelling of her lower extremities. She denies any chest pain. She follows with Dr. Laurent of [facility] cardiology. She is not currently on any furosemide. She does not recall being told she has any heart failure. Her shortness of breath is worse when she lies down flat or when she is active. I do not see any past echocardiograms on file for her. 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 HEENT: Cataracts, Tonsil/Adenoidectomy - Present Medications Home Medications: Ambulatory Orders Medication Instructions Recorded Confirmed Apixaban [Eliquis] 5 mg PO BID 05/03/19 05/31/19 Metoprolol Tartrate [Lopressor] 25 mg PO BID 05/30/19 05/30/19 - Allergies Allergies/Adverse Reactions: Allergies Allergy/AdvReac Type Severity Reaction Status Date / Time Penicillins Allergy Hives Verified 05/30/19 13:00 aluminum AdvReac Unknown Verified 05/30/19 13:00 cephalexin [From Keflex] AdvReac stomach Verified 05/30/19 13:00 pain ciprofloxacin [From Cipro] AdvReac stomach Verified 05/30/19 13:00 pain clindamycin AdvReac Nausea Verified 05/30/19 13:00 codeine AdvReac Nausea Verified 05/30/19 13:00 erythromycin base AdvReac diarrhea, Verified 05/30/19 13:00 bladder pain formaldehyde AdvReac Unknown Verified 05/30/19 13:00 hydrocodone [From Vicodin] AdvReac GERD, Verified 05/30/19 13:00 abdominal pain ibuprofen [From Advil] AdvReac stomach Verified 05/30/19 13:00 pain lidocaine AdvReac Nausea, Verified 05/30/19 13:00 low BP meloxicam AdvReac GERD, Verified 05/30/19 13:00 abdominal pain mercury (elemental) AdvReac Unknown Verified 05/30/19 13:00 metronidazole [From Flagyl] AdvReac stomach Verified 05/30/19 13:00 pain naproxen AdvReac stomach Verified 05/30/19 13:00 pain pantoprazole [From Protonix] AdvReac GERD, Verified 05/30/19 13:00 diarrhea sulfite AdvReac Unknown Verified 05/30/19 13:00 - Social History Does the pt smoke?: No Smoking Status: Never smoker Does the pt drink ETOH?: No Does the pt have substance abuse?: No - Immunizations Immunizations are current?: Yes - POLST Patient has POLST: No PD ED PE NORMAL - Vitals Vital signs reviewed: Yes - General General: Alert and oriented X 3, No acute distress - HEENT HEENT: PERRL - Neck Neck: Supple, no meningeal sign - Cardiac Cardiac: Other (Tachycardia, irregularly irregular rhythm) - Respiratory Respiratory: No respiratory distress, Other (Bibasilar crackles.) - Abdomen Abdomen: Soft, Non tender, Non distended - Derm Derm: Warm and dry - Extremities Extremities: Other (2+ edema of the BLE) - Neuro Neuro: Alert and oriented X 3 - Psych Psych: Normal mood, Normal affect Results - Vitals Vitals: Oxygen O2 Source Room air - EKG (time done) 14:06 Other comments: Other comments (Rate 139, rhythm atrial fibrillation, there is no ST segment elevation or depression.) - Labs Labs: Laboratory Tests 05/30/19 05/30/19 05/30/19 13:40 13:40 13:40 WBC 6.8 RBC 3.99 L Hgb 11.9 L Hct 36.9 L MCV 92.5 MCH 29.8 MCHC 32.2 RDW 15.1 H Plt Count 261 MPV 8.8 Neut # (Auto) 4.8 Lymph # (Auto) 1.3 L [place] # (Auto) 0.5 Eos # (Auto) 0.1 Baso # (Auto) 0.1 Absolute Nucleated RBC 0.00 Nucleated RBC % 0.0 Sodium 138 Potassium 4.0 Chloride 103 Carbon Dioxide 23 Anion Gap 12.0 BUN 11 Creatinine 0.9 Estimated GFR (MDRD) 61 L Glucose 141 H Calcium 9.8 Total Bilirubin 1.2 H AST 21 ALT 17 Alkaline Phosphatase 34 L Troponin I High Sens B-Natriuretic Peptide 445 H Total Protein 6.8 Albumin 3.9 Globulin 2.9 Albumin/Globulin Ratio 1.3 Lipase 35 05/30/19 13:40 WBC RBC Hgb Hct MCV MCH MCHC RDW Plt Count MPV Neut # (Auto) Lymph # (Auto) [place] # (Auto) Eos # (Auto) Baso # (Auto) Absolute Nucleated RBC Nucleated RBC % Sodium Potassium Chloride Carbon Dioxide Anion Gap BUN Creatinine Estimated GFR (MDRD) Glucose Calcium Total Bilirubin AST ALT Alkaline Phosphatase Troponin I High Sens 2.7 B-Natriuretic Peptide Total Protein Albumin Globulin Albumin/Globulin Ratio Lipase - Rads (name of study) CXR Radiology: Other (Small bilateral pleural effusions) PD MEDICAL DECISION MAKING - ED course Complexity details: considered differential (HF, A-fib with RVR, pulmonary edema, pleural effusion, ACS, PNA, PTX, electrolyte disturbance) ED course: Pt on exam is tachycardic and in a-fib with RVR. EKG does not show convincing signs of ischemia. XR shows bilateral small pleural effusions and signs of mild congestion. Troponin is negative and she has no chest pain, ACS highly unlikely. No unilateral leg swelling or chest pain, and pt is on anticoagulants, making PE unlikely. BNP is elevated consistent with HF. When patient got up to ambulate to the bathroom, she desaturated to high 70s. She did quickly recovered to the 90s and when she sitting at rest upright she is not hypoxic, but with movement she desaturates. She was given 2 doses of metroprolol IV with some reduction in her heart rate. Overall she appears to have a-fib with RVR, which may in part be poorly controlled due to her self-reduction of her beta-mariajose. This may in turn be causing symptoms of HF. It is also possible that she has underlying cardiac dysfunction that has worsened and triggered her RVR. She was given 20mg furosemide IV and was admitted to the hospital for further evaluation and treatment. Pt was updated and is in agreement with the plan. Departure - Departure Disposition: 66 [facility] DC/Xfer Clinical Impression: Hypoxia Atrial fibrillation Qualifiers: Atrial fibrillation type: unspecified Qualified Code(s): I48.91 - Unspecified atrial fibrillation Condition: Good Discharge Date/Time: 05/30/19 18:35
[2019-05-30] MEDS ORDERED: FUROSEMIDE 40 MG/4 ML VIAL IVP STA (15:00)
[2019-05-30] MEDS ORDERED: MORPHINE 2 MG/ML CARPUJECT IVP PRN (17:51)
[2019-05-30] MEDS ORDERED: PROCHLORPERAZINE 10 MG/2 ML VIAL IVP PRN (17:51)
--- NOTE | 2019-05-30 18:47 | HISTORY & PHYSICAL EXAMINATION ---
DATE OF SERVICE: 05/30/2019 Physician: Geraldine Duarte MD HISTORY OF PRESENT ILLNESS: This is a 74-year-old white female with history of paroxysmal atrial fibrillation and hypertension. In the past she was on HCTZ/triamterene and lisinopril for blood pressure control. She recently underwent elective cholecystectomy for symptomatic gallbladder disease. When the elective gallbladder surgery was initially scheduled, in the preop area, her EKG showed atrial fibrillation with rapid ventricular response and the surgery was canceled and she was sent to the emergency room for managing the atrial fibrillation with rapid ventricular response. By that point, her heart rate is already slowed down to 80 in atrial fibrillation and she was started on new Eliquis 5 mg b.i.d. because of a CHADS score of 2 or greater. Patient was also told to get cardiac clearance before undergoing the cholecystectomy. She says she underwent a 7-day heart monitor and had an echo, she does not know either of these results. She did not have a stress test; she remembers having a stress test last done approximately 5 years ago and told it was normal. During that time she also needed 2 courses of treatment with nitrofurantoin for a UTI. Patient was then rescheduled for the lap-andrez, after getting clearance from cardiology and did undergo successful laparoscopic cholecystectomy, which was done approximately 2 weeks ago. She then started to decrease her dose of metoprolol tartrate 50 mg b.i.d. on her own down to 25 mg b.i.d. because of "stomach pain on the higher dose and because she does not like to take medications." She dose see a Beveller Operator in [place]. Also, her Eliquis dose, which was 5 mg b.i.d. is now listed at being 2.5 mg b.i.d. and she does admit she decreased her dose because of nose bleeds. She also started to notice about 2 weeks of worsening leg edema and dyspnea on exertion and then new orthopnea more recently. There has been no chest pain. She presented to the emergency room because of the shortness of breath and found to be in atrial fibrillation with rapid ventricular response at a rate of 130 and with activity her oxygen saturation dropped into the 70% range. She started to get treatment in the ER for rate control with IV beta mariajose pushes, which has decreased her heart rate from 130 down to 115 and blood pressure has been in the 100-120 systolic range. She also got a dose of iv Lasix. She is being admitted for atrial fibrillation with rapid ventricular response, medication noncompliance, new onset of heart failure. PAST MEDICAL HISTORY 1. Paroxysmal atrial fibrillation since approximately 3 months ago. There are several EKGs here since February 2019, and most she is in A. fib, on one she is in sinus rhythm. 2. Hypertension Hx, currently "soft" BP. 3. Status post cholecystectomy 2 weeks ago. ALLERGIES (These mostly produce side effects, not rashes or anaphylactic reactions) 1. PENICILLIN. 2. TYLENOL. 3. ALUMINUM. 4. KEFLEX. 5. CIPRO. 6. CLINDAMYCIN 7. CODEINE. 8. ERYTHROMYCIN. 9. FORMALDEHYDE. 10. VICODIN. 11. ADVIL. 12. LIDOCAINE. 13. MELOXICAM. 14. MERCURY. 15. FLAGYL. 16. NAPROSYN. 17. PROTONIX. 18. SULFITES. MEDICATIONS AT HOME 1. Metoprolol tartrate 50 mg b.i.d., but she was taking 25 mg b.i.d. 2. Eliquis was supposed to be 5 mg b.i.d., but she was taking 2.5 mg b.i.d. FAMILY HISTORY: Noncontributory. SOCIAL HISTORY: She is a nonsmoker, drinks no alcohol, no IV drug use history. REVIEW OF SYSTEMS: She had an EGD approximately 5 years ago and did not have H. pylori. She wonders about having another EGD because so many medications giving her some type of stomach pain. She has had a history of a mitral regurgitation murmur, GERD, urinary incontinence and prior UTIs, arthritis with back pain and fibromyalgia pain, knee replacement in the past and cataract surgery in the past. A comprehensive review of systems was performed and the pertinent positives are listed, the rest are negative. PHYSICAL EXAMINATION GENERAL: White female who is in no distress at rest. VITAL SIGNS: Blood pressure 104-120/70-90, heart rate is now 110-115 in atrial fibrillation/flutter, afebrile, room air saturation was 97%, but with activity dropped into 70's%. HEENT: Unremarkable. NECK: Without JVD, sitting vertically. LUNGS: Diminished breath sounds at both bases. No rales or wheezes. HEART: Heart sounds are tachycardic. There is a 2/6 systolic murmur. ABDOMEN: Soft, non-distended, nontender. Normal bowel sounds. EXTREMITIES: 4+ edema to the buttocks. No clubbing or cyanosis. NEUROLOGIC: Grossly intact. LABORATORY DATA: Normal electrolytes. Normal BUN and creatinine. Normal liver tests. High sens-troponin normal at 2.7. BNP high at 445, the last one was about 178. Normal lipase. White blood count 6.8, hemoglobin 11.9, platelet count normal at 261. No INR was done, but this would be not reliable in a patient on Eliquis. No urinalysis was done. DIAGNOSTIC DATA: Chest x-ray: Mild bilateral pleural effusions. EKG: Atrial fib-flutter with a rapid rate and variable block, low voltage in the limb leads. Low voltage is new compared to the EKG from 1 month ago. IMPRESSION AND DIAGNOSES 1. Atrial fibrillation with rapid ventricular response. 2. Paroxysmal atrial fibrillation. 3. New onset of congestive heart failure, which could be tachycardia-induced, or related to her longstanding mitral regurgitation, or from HTN. It must have been developing over time, since the leg edema has progressed to her buttocks. 4. Hypoxia. 5. Medication noncompliance. 6. History of hypertension. PLAN: Admit the patient to a telemetry bed. Continue with IV medication pushes for rate control using either iv Metoprolol or Cardizem. If necessary, a Cardizem drip may need to be started or digoxin used, if blood pressure is low. Resume her doses of beta-mariajose, eventually titrating up to the higher dose that was planned. Resume her higher dose of Eliquis as well since, by correct dosing: her age is less than 80, weight is greater than 70 kilograms and creatinine is normal. Begin IV b.i.d. diuretics, follow I's and O's, daily weights, BMP and magnesium labs daily. Obtain an Echo to evaluate LV and RV contractility and for a pericardial effusion, given the new low voltage on EKG. Add supplemental oxygen and eventually titrate down to off if possible, as she diureses. If possible, obtain the recent cardiology clearance notes to determine what workup she has had regarding her heart. Since the troponin is normal and there has been no chest pain and she was recently cleared for surgery, an acute coronary syndrome is not suspected now, and a repeat troponin is not planned. Patient needs medication compliance education. She also needs CHF teaching regarding medications, diet, and she may be a candidate for the CHF cardiac rehab program. CODE STATUS: FULL CODE. DEEP VENOUS THROMBOSIS PROPHYLAXIS: Pharmacotherapy. ATTESTATION: Patient is expected to be discharged or transferred to another facility within 96 hours: Yes. cc: Сергей Elias MD TD: 05/30/2019 18:18 MTDD
[2019-05-30] MEDS: FUROSEMIDE 20 MG/2 ML VIAL IVP SCH (20:42)
[2019-05-30] MEDS: FAMOTIDINE 20 MG TABLET PO SCH ×3 (20:42→21:45)
[2019-05-30] MEDS: METOPROLOL SUCCINATE 25 MG TABLET PO SCH (20:42)
[2019-05-30] MEDS: SODIUM CHLORIDE FLUSH 0.9% 10 ML SYRINGE IVP PRN (20:46)
[2019-05-30] MEDS ORDERED: APIXABAN 2.5 MG PO SCH (21:00)
[2019-05-30] MEDS: APIXABAN 5 MG TABLET PO SCH (21:42)
[2019-05-31] MEDS: SODIUM CHLORIDE FLUSH 0.9% 10 ML SYRINGE IVP SCH ×3 (00:25→21:00)
[2019-05-31] MEDS: NYSTATIN POWDER 15 GM TOP SCH ×3 (00:25→21:03)
[2019-05-31 05:44] LABS: CALCIUM 9.5 mg/dL (8.5-10.3); CREATININE 0.9 mg/dL (0.4-1.0)
[2019-05-31] MEDS: FUROSEMIDE 20 MG/2 ML VIAL IVP SCH ×2 (06:48→14:28)
[2019-05-31] MEDS: SODIUM CHLORIDE FLUSH 0.9% 10 ML SYRINGE IVP PRN (06:48)
[2019-05-31] MEDS: FAMOTIDINE 20 MG TABLET PO SCH ×2 (08:31→20:59)
[2019-05-31] MEDS: METOPROLOL SUCCINATE 25 MG TABLET PO SCH ×2 (08:31→21:00)
[2019-05-31] MEDS: APIXABAN 5 MG TABLET PO SCH (08:31)
[2019-05-31] MEDS: diltiaZEM 30 MG TABLET PO SCH ×2 (09:25→14:28)
[2019-05-31] MEDS: SPIRONOLACTONE 25 MG TABLET PO SCH (09:25)
--- NOTE | 2019-05-31 12:44 | PHARMACY PROGRESS NOTE ---
- Best Possible Medication History Admit Date and Time: 05/30/19 1749 Processed by: Pharmacy Medication History completed: Yes Patient Interview: Completed Secondary Source(s): Pharmacy records, Insurance records As the person ultimately responsible for medication therapy, providers are able to order a medication from an existing home medication list in [facility] via the "Reconcile Routine" prior to Confirmation of that medication by residential direct support professional. Such practice is discouraged except when the physician, in their clinical judgment, deems that a medical need exists for a medication without regard to previous use.
--- NOTE | 2019-05-31 15:26 | PROVIDER PROGRESS NOTE ---
Assessment/Plan - Problem List (1) Atrial fibrillation with RVR Assessment/Plan: At rest the heart rate is now controlled at 90 but with any activity even rolling over in bed, it jumps to 150-160. I had a long talk with the patient and at bedside regarding importance of heart rate control and importance of following doctors orders. Patient has been under the impression that the metoprolol has caused her heart rate to increase and pulled out typed examples of people writing and blogs were they had similar experiences. I gave her my comments regarding why there could have been other causes. I gave the patient printed information about A. fib and its complications for her to read. We will try to continue with heart rate control by the addition of Cardizem and possibly transitioning entirely to Cardizem. Continue with Eliquis at the correct dose of 5 mg twice daily, watching for bleeding. The patient agrees to this plan (2) Acute systolic heart failure Assessment/Plan: I requested the last 2 office visit notes from her livestock nutritionist but instead Dr. Roberts called me back and we spoke in person and reviewed this lady's history. She did wear a heart monitor for 7 days which showed tachycardia and based on this the metoprolol dose was increased. The patient's last Echo was done 1 month ago which showed an LVEF of 50 to 55%, normal RV size and function, PA pressure upper limits of normal at 36 mmHg and moderate mitral regurgitation. The Echo done here today shows global hypokinesis with EF of 40%, PA pressure increased to 55 mmHg and continued moderate mitral regurgitation. 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 Will continue with IV Lasix twice daily. Follow I's and O's, daily weights, BMP and magnesium daily We will add Spironolactone. I gave the patient a printout regarding congestive heart failure and its standard treatment, based on research and publications. I reviewed the importance of being compliant with medications from medical advice and told her that Dr. Roberts had told me that she was very unhappy with the patient's noncompliance (The patient would call their office simply to inform them of how she was decreasing her medications on her own.) The was at bedside during this entire discussion. (3) Pericardial effusion without cardiac tamponade Assessment/Plan: The echo was also done to look for pericardial effusion, since the voltage on EKG had decreased from the last month. The echo did indeed show a small circumferential pericardial effusion. This is consistent with slow volume accumulation since there is no tamponade. Continue with slow diuresis. (4) Medical non-compliance Assessment/Plan: I had a long discussion with the patient, with present at bedside, regarding following medical advice, and the importance of not adjusting medications on her own. Patient was initially resistant and gave me printouts of other peoples medication side effect complaints. The patient eventually did apologize that she was doing this on her own and agreed to follow a physician's advice (5) Burning sensation of stomach Assessment/Plan: It is for this reason that the pt has tried to decrease or eliminate her oral medications. There is no nausea vomiting or diarrhea. She reports having an EGD 5 years ago that was normal. I recommend that she have EGD now to determine what the cause of the latest problem is, since it is affecting her medication intake and therefore her medical management. The patient agrees to an EGD. Will request Dr. Vinson for EGD when HR is controlled, since Dr. Vinson did her gallbladder surgery 2 weeks ago and knows the pt. (6) Hx of essential hypertension Assessment/Plan: In the past she was on lisinopril and HCTZ/triamterene. More recently she is been on metoprolol tartrate only for BP control. Here, her blood pressure is "soft" because of the need for IV Lasix for diuresis, Metoprolol and Cardizem for rate control and starting spironolactone. (7) Yeast dermatitis Assessment/Plan: Topical antifungal powder has been started (8) Mild malnutrition Assessment/Plan: Patient reported having less than 50% food intake in the last week and has had a weight loss of 4.5% in the past 3 months going from 109 kg to 104 kg. This is very likely due to intestinal edema causing a decreased appetite. Will manage this by continuing slow and steady diuresis. - Current Meds Current Meds: Current Medications Generic Name Dose Route Start Last Admin Trade Name Freq PRN Reason Stop Dose Admin Apixaban 5 mg 05/30/19 21:00 05/31/19 08:31 Eliquis PO 5 mg BID TAY Administration Diltiazem HCl 30 mg 05/31/19 09:30 05/31/19 14:28 Cardizem PO 30 mg Q6HR TAY Administration Famotidine 20 mg 05/30/19 21:00 05/31/19 08:31 Pepcid PO 20 mg BID TAY Administration Furosemide 20 mg 05/30/19 20:00 05/31/19 14:28 Lasix Inj 20mg Vial IVP 20 mg BIDDIURETIC TAY Administration Metoprolol Succinate 25 mg 05/30/19 21:00 05/31/19 08:31 Toprol Xl PO 25 mg BID TAY Administration Nystatin 1 applic 05/30/19 23:45 05/31/19 08:31 Nystop TOP 1 applic BID TAY Administration Sodium Chloride 10 ml 05/30/19 17:51 05/31/19 06:48 Normal Saline Flush 0.9% IVP 10 ml PRN PRN Administration NEEDED PER PROVIDER ORDERS Sodium Chloride 10 ml 05/31/19 01:00 05/31/19 14:28 Normal Saline Flush 0.9% IVP 10 ml 0100,0900,1700 TAY Administration Spironolactone 25 mg 05/31/19 09:08 05/31/19 09:25 Aldactone PO 25 mg DAILY TAY Administration - Lab Result Fish Bone Diagrams: 05/30/19 13:40 05/31/19 05:25 - Additional Planning My Orders: My Active Orders 05/30/19 17:51 Activity Orders [RC] Q2HR IO [RC] IOSHIFT Initiate Bowel Care Protocol [RC] .protocol Initiate Line Care Protocol [RC] QSHIFT Initiate Personal Care Protoco [RC] .protocol Oxygen Therapy [RC] Routine Telemetry- [RC] Q4HR Vital Signs [RC] Q4HR Prochlorperazine Inj [Compazine Inj] 10 mg IVP Q6HR PRN Sodium Chloride Flush 0.9% [Normal Saline Flush 0.9%] 10 ml IVP PRN PRN Code Status [OTHERS] Routine Condition of Patient [OTHERS] Routine DVT Prophylaxis [OTHERS] Routine 05/30/19 17:52 Daily Weight [RC] 0600 IV Insert [RC] .ONCE 05/30/19 17:56 Pure Wick [External Catheter Care] [RC] QSHIFT 05/30/19 20:00 FUROSEMIDE INJ 20mg VIAL [LASIX INJ 20mg VIAL] 20 mg IVP BIDDIURETIC 05/30/19 21:00 Apixaban [Eliquis] 5 mg PO BID Famotidine [Pepcid] 20 mg PO BID Metoprolol Succinate [Toprol Xl] 25 mg PO BID 05/30/19 Dinner Low Sodium Diet [DIET] 05/31/19 01:00 Sodium Chloride Flush 0.9% [Normal Saline Flush 0.9%] 10 ml IVP 0100,0900,1700 05/31/19 08:00 Echo Transthoracic Complete [ECHO] Routine 05/31/19 09:08 Spironolactone [Aldactone] 25 mg PO DAILY 05/31/19 09:30 diltiaZEM [Cardizem] 30 mg PO Q6HR 06/01/19 05:00 BMP - BASIC METABOLIC PANEL [CHEM] DAILYLAB BNP - B-NATRIURETIC PEPTIDE [IAI] DAILYLAB MAGNESIUM [CHEM] DAILYLAB Subjective - Subjective Patient Reports: Feeling Better Nursing Reports: Other (She has approximately 1.5 L negative fluid balance since admission) Objective Vital Signs: Vital Signs - 24 hr 05/30/19 05/30/19 05/30/19 16:06 16:14 16:18 Temperature Heart Rate 133 H 119 H 111 H Heart Rate [ Brachial] Heart Rate [ Monitoring electrodes] Respiratory 18 18 19 Rate Blood Pressure 118/81 H 108/82 H 104/71 Blood Pressure [Right Brachial artery] O2 Saturation 100 99 97 05/30/19 05/30/19 05/30/19 18:00 18:54 20:19 Temperature 36.4 C L 36.4 C L Heart Rate 129 H Heart Rate [ 82 55 L Brachial] Heart Rate [ Monitoring electrodes] Respiratory 26 H 18 18 Rate Blood Pressure 113/81 H Blood Pressure 131/68 H 162/79 H [Right Brachial artery] O2 Saturation 95 98 94 05/30/19 05/30/19 05/30/19 22:40 22:44 22:55 Temperature Heart Rate Heart Rate [ 138 H 112 H Brachial] Heart Rate [ Monitoring electrodes] Respiratory Rate Blood Pressure 120/84 H Blood Pressure 120/84 H 119/73 [Right Brachial artery] O2 Saturation 05/30/19 05/30/19 05/30/19 22:56 23:05 23:28 Temperature 36.4 C L Heart Rate Heart Rate [ 117 H 107 H 129 H Brachial] Heart Rate [ Monitoring electrodes] Respiratory 18 Rate Blood Pressure Blood Pressure 136/114 H 108/60 117/72 [Right Brachial artery] O2 Saturation 94 05/30/19 05/31/19 05/31/19 23:45 00:00 01:50 Temperature Heart Rate Heart Rate [ 123 H Brachial] Heart Rate [ Monitoring electrodes] Respiratory 20 Rate Blood Pressure Blood Pressure 119/80 129/74 109/70 [Right Brachial artery] O2 Saturation 95 05/31/19 05/31/19 05/31/19 05:00 06:00 08:31 Temperature 36.8 C 36.8 C Heart Rate Heart Rate [ 108 H 118 H Brachial] Heart Rate [ 125 H Monitoring electrodes] Respiratory 18 20 Rate Blood Pressure Blood Pressure 106/69 120/70 142/57 H [Right Brachial artery] O2 Saturation 95 97 05/31/19 05/31/19 05/31/19 09:25 13:16 14:28 Temperature 36.5 C Heart Rate Heart Rate [ 103 H Brachial] Heart Rate [ Monitoring electrodes] Respiratory 20 Rate Blood Pressure 142/57 H 106/60 Blood Pressure 106/60 [Right Brachial artery] O2 Saturation 94 Oxygen O2 Source Room air I&O (Last 24 Hrs): Intake and Output Totals x24h 05/29/19 05/30/19 05/31/19 23:59 23:59 23:59 Intake Total 50 860 Output Total 825 1250 Balance -775 -390 General: Alert, Oriented x3 HEENT: Mucous membr. moist/pink Neck: Supple, No JVD Neuro: Alert, Non Focal Cardiovascular: Other (Irregular, tachycardic) Respiratory: No respiratory distress, Rales Abdomen: Normal bowel sounds, Soft Genitourinary: Other (Redness in the folds of her groin) Extremities: Other (3+ edema to the mid thighs) - Results Results: Laboratory Results WBC 6.8 x10^3/uL (4.8-10.8) 05/30/19 13:40 RBC 3.99 10^6/uL (4.20-5.40) L 05/30/19 13:40 Hgb 11.9 g/dL (12.0-16.0) L 05/30/19 13:40 Hct 36.9 % (37.0-47.0) L 05/30/19 13:40 MCV 92.5 fL (81.0-99.0) 05/30/19 13:40 MCH 29.8 pg (27.0-31.0) 05/30/19 13:40 MCHC 32.2 g/dL (32.0-36.0) 05/30/19 13:40 RDW 15.1 % (12.0-15.0) H 05/30/19 13:40 Plt Count 261 10^3/uL (130-450) 05/30/19 13:40 MPV 8.8 fL (7.9-10.8) 05/30/19 13:40 Neut # (Auto) 4.8 10^3/uL (1.5-6.6) 05/30/19 13:40 Lymph # (Auto) 1.3 10^3/uL (1.5-3.5) L 05/30/19 13:40 [place] # (Auto) 0.5 10^3/uL (0.0-1.0) 05/30/19 13:40 Eos # (Auto) 0.1 10^3/uL (0.0-0.7) 05/30/19 13:40 Baso # (Auto) 0.1 10^3/uL (0.0-0.1) 05/30/19 13:40 Absolute Nucleated RBC 0.00 x10^3/uL 05/30/19 13:40 Nucleated RBC % 0.0 /100WBC 05/30/19 13:40 Sodium 142 mmol/L (135-145) 05/31/19 05:25 Potassium 3.5 mmol/L (3.5-5.0) 05/31/19 05:25 Chloride 105 mmol/L (101-111) 05/31/19 05:25 Carbon Dioxide 24 mmol/L (21-32) 05/31/19 05:25 Anion Gap 13.0 (6-13) 05/31/19 05:25 BUN 10 mg/dL (6-20) 05/31/19 05:25 Creatinine 0.9 mg/dL (0.4-1.0) 05/31/19 05:25 Estimated GFR (MDRD) 61 (>89) L 05/31/19 05:25 Glucose 111 mg/dL (70-100) H 05/31/19 05:25 Calcium 9.5 mg/dL (8.5-10.3) 05/31/19 05:25 Magnesium 2.0 mg/dL (1.7-2.8) 05/31/19 05:25 Total Bilirubin 1.2 mg/dL (0.2-1.0) H 05/30/19 13:40 AST 21 IU/L (10-42) 05/30/19 13:40 ALT 17 IU/L (10-60) 05/30/19 13:40 Alkaline Phosphatase 34 IU/L (42-121) L 05/30/19 13:40 Troponin I High Sens 2.7 ng/L (2.3-14.8) 05/30/19 13:40 B-Natriuretic Peptide 470 pg/mL (5-100) H 05/31/19 05:25 Total Protein 6.8 g/dL (6.7-8.2) 05/30/19 13:40 Albumin 3.9 g/dL (3.2-5.5) 05/30/19 13:40 Globulin 2.9 g/dL (2.1-4.2) 05/30/19 13:40 Albumin/Globulin Ratio 1.3 (1.0-2.2) 05/30/19 13:40 Lipase 35 U/L (22-51) 05/30/19 13:40 - Procedures Procedures: Procedures RESECTION OF GALLBLADDER, PERCUTANEOUS ENDOSCOPIC APPROACH (05/16/19)
[2019-05-31] MEDS ORDERED: APIXABAN 5 MG TABLET PO SCH (21:00)
[2019-06-01] MEDS: SODIUM CHLORIDE FLUSH 0.9% 10 ML SYRINGE IVP SCH ×3 (01:35→16:22)
[2019-06-01] MEDS: FUROSEMIDE 20 MG/2 ML VIAL IVP SCH ×2 (05:40→14:37)
[2019-06-01 06:05] LABS: CALCIUM 8.6 mg/dL (8.5-10.3); CREATININE 0.9 mg/dL (0.4-1.0); MAGNESIUM 1.8 mg/dL (1.7-2.8)
[2019-06-01] MEDS ORDERED: POTASSIUM CHLORIDE 20 MEQ TABLET PO SCH (06:49)
[2019-06-01] MEDS: NYSTATIN POWDER 15 GM TOP SCH ×2 (08:23→20:31)
[2019-06-01] MEDS: MULTIVITAMIN W/MINERALS TABLET PO SCH (08:23)
[2019-06-01] MEDS: SPIRONOLACTONE 25 MG TABLET PO SCH (08:23)
[2019-06-01] MEDS: METOPROLOL SUCCINATE 25 MG TABLET PO SCH (08:23)
[2019-06-01] MEDS: FAMOTIDINE 20 MG TABLET PO SCH ×2 (08:23→20:31)
[2019-06-01] MEDS: LACTOBACILLUS RHAMNOSUS GG CAPSULE PO SCH (08:23)
[2019-06-01] MEDS ORDERED: MAGNESIUM SULFATE 2 GRAM 2 GM/50 ML BAG IV ONE (09:30)
[2019-06-01] MEDS ORDERED: METOPROLOL SUCCINATE 25 MG TABLET PO SCH (12:00)
--- NOTE | 2019-06-01 12:56 | PROVIDER PROGRESS NOTE ---
Assessment/Plan - Problem List (1) V-tach Assessment/Plan: She was sleeping and asymptomatic K was 3.1 and was Hypokalemia was the likely etiology. Magnesium was normal. Troponins were normal x2 this a.m. Remain on telemetry (2) Atrial fibrillation with RVR Assessment/Plan: Heart rate is better controlled with Cardizem 60 mg 4 times a day and Metoprolol succinate 25 mg twice daily, But BP dropped to 79 systolic We will decrease the metoprolol to once a day, this is with the patient wishes to change to and use Cardizem. Tomorrow will change to Cardizem CD based on how much Cardizem oral is required for rate control. Eliquis will be discontinued before the EGD. (3) Acute systolic heart failure Assessment/Plan: Continue with IV twice daily Lasix, new spironolactone Will decrease the rate control meds in order to prevent hypotension (BP dropped to 79 systolic with all the above) (4) Pericardial effusion without cardiac tamponade Assessment/Plan: The presence of a circumferential pericardial effusion indicates that she has had fluid retention 4 weeks. This requires a very slow diuresis. Continue to follow I's and O's, daily weight and continue IV twice daily Lasix plus Spironolactone (5) Medical non-compliance Assessment/Plan: I had a long discussion with her yesterday regarding the importance of compliance which she appears to have now agreed to (6) Burning sensation of stomach Assessment/Plan: General surgery consult requested today of Dr. Katlin Isaac who knew her from the cholecystectomy 2 weeks ago, to have EGD. Patient did have a breakfast and Dr. Vinson cannot do the EGD today, it will be on the schedule for tomorrow (7) Hx of essential hypertension Assessment/Plan: In the remote past the patient was on lisinopril +8 HCTZ/triamterene. More recently she is only been on metoprolol for blood pressure control. Since being admitted and being on multiple meds for diuresis and heart rate and heart failure, she has had low blood pressures (8) Yeast dermatitis Assessment/Plan: Topical nystatin powder has been started (9) Mild malnutrition Assessment/Plan: As per RD, it is likely from bowel wall edema causing decreased appetite (10) Hypokalemia Assessment/Plan: Related to aggressive diuresis. Replace Po or IV. Also will start daily scheduled potassium while she is on diuretics Follow BMP day - Current Meds Current Meds: Current Medications Generic Name Dose Route Start Last Admin Trade Name Zoran PRN Reason Stop Dose Admin Diltiazem HCl 60 mg 05/31/19 23:00 06/01/19 11:44 Cardizem PO 60 mg Q6HR TAY Administration Famotidine 20 mg 05/30/19 21:00 06/01/19 08:23 Pepcid PO 20 mg BID TAY Administration Furosemide 20 mg 05/30/19 20:00 06/01/19 05:40 Lasix Inj 20mg Vial IVP 20 mg BIDDIURETIC TAY Administration Lactobacillus Rhamnosus 1 cap 06/01/19 09:00 06/01/19 08:23 Culturelle PO 1 cap DAILY TAY Administration Multivitamins/Minerals 1 tab 06/01/19 08:00 06/01/19 08:23 Theragran M PO 1 tab DAILYWM TAY Administration Nystatin 1 applic 05/30/19 23:45 06/01/19 08:23 Nystop TOP 1 applic BID TAY Administration Sodium Chloride 10 ml 05/30/19 17:51 05/31/19 06:48 Normal Saline Flush 0.9% IVP 10 ml PRN PRN Administration NEEDED PER PROVIDER ORDERS Sodium Chloride 10 ml 05/31/19 01:00 06/01/19 08:23 Normal Saline Flush 0.9% IVP 10 ml 0100,0900,1700 TAY Administration Spironolactone 25 mg 05/31/19 09:08 06/01/19 08:23 Aldactone PO 25 mg DAILY TAY Administration - Lab Result Fish Bone Diagrams: 05/30/19 13:40 06/01/19 11:47 - Additional Planning My Orders: My Active Orders 05/31/19 23:00 diltiaZEM [Cardizem] 60 mg PO Q6HR 06/01/19 General Surgery Consult [CONS] Routine 06/01/19 08:00 Multivitamin W/Minerals [Theragran M] 1 tab PO DAILYWM 06/01/19 09:00 Lactobacillus Rhamnosus GG [Culturelle] 1 cap PO DAILY 06/01/19 21:00 Apixaban [Eliquis] 5 mg PO BID 06/01/19 Lunch DIET [Low Sodium Diet] [DIET] 06/02/19 05:00 BMP - BASIC METABOLIC PANEL [CHEM] DAILYLAB MAGNESIUM [CHEM] DAILYLAB 06/02/19 08:00 Potassium Chloride [K-Dur] 20 meq PO DAILYWM 06/02/19 12:00 Metoprolol Succinate [Toprol Xl] 25 mg PO 1200 06/03/19 05:00 BMP - BASIC METABOLIC PANEL [CHEM] DAILYLAB 06/04/19 05:00 BMP - BASIC METABOLIC PANEL [CHEM] DAILYLAB Subjective - Subjective Patient Reports: Feeling Better, Resting Comfortably, No Complaints Objective Vital Signs: Vital Signs - 24 hr 05/31/19 05/31/19 05/31/19 13:16 14:28 15:42 Temperature 36.5 C 36.3 C L Heart Rate [ 103 H Brachial] Heart Rate [ 112 H Monitoring electrodes] Respiratory 20 20 Rate Blood Pressure 106/60 Blood Pressure 106/60 132/65 H [Right Brachial artery] O2 Saturation 94 94 05/31/19 05/31/19 06/01/19 20:08 22:39 00:03 Temperature 36.4 C L 36.4 C L Heart Rate [ 116 H Brachial] Heart Rate [ 104 H Monitoring electrodes] Respiratory 16 18 Rate Blood Pressure 143/64 H Blood Pressure 139/52 H 138/65 H [Right Brachial artery] O2 Saturation 98 96 06/01/19 06/01/19 06/01/19 05:00 05:40 08:15 Temperature 36.6 C 37 C Heart Rate [ 90 Brachial] Heart Rate [ 89 Monitoring electrodes] Respiratory 20 20 Rate Blood Pressure 107/63 Blood Pressure 107/63 75/53 L [Right Brachial artery] O2 Saturation 96 96 06/01/19 06/01/19 08:19 11:44 Temperature Heart Rate [ 90 Brachial] Heart Rate [ Monitoring electrodes] Respiratory Rate Blood Pressure 134/67 H Blood Pressure 105/50 L [Right Brachial artery] O2 Saturation Oxygen O2 Source Room air I&O (Last 24 Hrs): Intake and Output Totals x24h 05/30/19 05/31/19 06/01/19 23:59 23:59 23:59 Intake Total 50 1210 620 Output Total 827 6073 8795 Balance -057 -156 -6160 General: Alert, Oriented x3 HEENT: Mucous membr. moist/pink Neck: Supple, No JVD Neuro: Alert, Non Focal Cardiovascular: No murmurs, Other (Irreg) Respiratory: No respiratory distress, Breath sounds nml Abdomen: Normal bowel sounds, Soft Extremities: Other (2+ edema to mid shins) - Results Results: Laboratory Results WBC 6.8 x10^3/uL (4.8-10.8) 05/30/19 13:40 RBC 3.99 10^6/uL (4.20-5.40) L 05/30/19 13:40 Hgb 11.9 g/dL (12.0-16.0) L 05/30/19 13:40 Hct 36.9 % (37.0-47.0) L 05/30/19 13:40 MCV 92.5 fL (81.0-99.0) 05/30/19 13:40 MCH 29.8 pg (27.0-31.0) 05/30/19 13:40 MCHC 32.2 g/dL (32.0-36.0) 05/30/19 13:40 RDW 15.1 % (12.0-15.0) H 05/30/19 13:40 Plt Count 261 10^3/uL (130-450) 05/30/19 13:40 MPV 8.8 fL (7.9-10.8) 05/30/19 13:40 Neut # (Auto) 4.8 10^3/uL (1.5-6.6) 05/30/19 13:40 Lymph # (Auto) 1.3 10^3/uL (1.5-3.5) L 05/30/19 13:40 [place] # (Auto) 0.5 10^3/uL (0.0-1.0) 05/30/19 13:40 Eos # (Auto) 0.1 10^3/uL (0.0-0.7) 05/30/19 13:40 Baso # (Auto) 0.1 10^3/uL (0.0-0.1) 05/30/19 13:40 Absolute Nucleated RBC 0.00 x10^3/uL 05/30/19 13:40 Nucleated RBC % 0.0 /100WBC 05/30/19 13:40 Sodium 137 mmol/L (135-145) 06/01/19 05:25 Potassium 3.1 mmol/L (3.5-5.0) L 06/01/19 11:47 Chloride 101 mmol/L (101-111) 06/01/19 05:25 Carbon Dioxide 26 mmol/L (21-32) 06/01/19 05:25 Anion Gap 10.0 (6-13) 06/01/19 05:25 BUN 12 mg/dL (6-20) 06/01/19 05:25 Creatinine 0.9 mg/dL (0.4-1.0) 06/01/19 05:25 Estimated GFR (MDRD) 61 (>89) L 06/01/19 05:25 Glucose 105 mg/dL (70-100) H 06/01/19 05:25 Calcium 8.6 mg/dL (8.5-10.3) 06/01/19 05:25 Phosphorus 4.6 mg/dL (2.5-4.6) 06/01/19 05:25 Magnesium 1.8 mg/dL (1.7-2.8) 06/01/19 05:25 Total Bilirubin 1.2 mg/dL (0.2-1.0) H 05/30/19 13:40 AST 21 IU/L (10-42) 05/30/19 13:40 ALT 17 IU/L (10-60) 05/30/19 13:40 Alkaline Phosphatase 34 IU/L (42-121) L 05/30/19 13:40 Troponin I High Sens 8.6 ng/L (2.3-14.8) 06/01/19 11:47 B-Natriuretic Peptide 229 pg/mL (5-100) H 06/01/19 05:25 Total Protein 6.8 g/dL (6.7-8.2) 05/30/19 13:40 Albumin 3.9 g/dL (3.2-5.5) 05/30/19 13:40 Globulin 2.9 g/dL (2.1-4.2) 05/30/19 13:40 Albumin/Globulin Ratio 1.3 (1.0-2.2) 05/30/19 13:40 Lipase 35 U/L (22-51) 05/30/19 13:40 - Procedures Procedures: Procedures RESECTION OF GALLBLADDER, PERCUTANEOUS ENDOSCOPIC APPROACH (05/16/19)
--- NOTE | 2019-06-01 13:22 | CONSULTATION NOTE ---
Referring Provider Name of Referring Provider:: Priscillakarissadaryl Consult Date: 06/01/19 Chief Complaint - Chief Complaint Chief Complaint: Dysphagia History of Present Illness - Admitted From Admitted From:: ED - History Obtained From Records Reviewed: Physician and nursing notes History obtained from: Patient and spouse Exam Limitations: None - History of Present Illness HPI Comment/Other: Pleasant lady well known to me from a recent visit for elective cholecystectomy. She was admitted 2 days ago with afib associated with RVR and acute systolic heart failure. This was likely precipitated by a difficulty in swallowing her medications. Nga says that it feels like her pills are "getting stuck" in her throat. She says it hurts at times but mostly she just feels she can't get them all the way down. She has been tolerating soft foods without difficulty and had a bowl of cream of wheat and some fruit this AM. She says she has had not difficulty with her diet. I have been consulted regarding the possibility of EGD to try to illuminate or alleviate this issue. Her only complaint today is pain at her IV site. 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: Other HEENT: reports: Cataracts, Tonsil/Adenoidectomy - POLST Patient has POLST: No Meds/Allgy - Home Medications Home Medications: Ambulatory Orders Medication Instructions Recorded Confirmed Apixaban [Eliquis] 5 mg PO BID 05/03/19 05/31/19 Metoprolol Tartrate [Lopressor] 25 mg PO BID 05/30/19 05/30/19 - Allergies Allergies/Adverse Reactions: Allergies Allergy/AdvReac Type Severity Reaction Status Date / Time Penicillins Allergy Hives Verified 05/30/19 13:00 aluminum AdvReac Unknown Verified 05/30/19 13:00 cephalexin [From Keflex] AdvReac stomach Verified 05/30/19 13:00 pain ciprofloxacin [From Cipro] AdvReac stomach Verified 05/30/19 13:00 pain clindamycin AdvReac Nausea Verified 05/30/19 13:00 codeine AdvReac Nausea Verified 05/30/19 13:00 erythromycin base AdvReac diarrhea, Verified 05/30/19 13:00 bladder pain formaldehyde AdvReac Unknown Verified 05/30/19 13:00 hydrocodone [From Vicodin] AdvReac GERD, Verified 05/30/19 13:00 abdominal pain ibuprofen [From Advil] AdvReac stomach Verified 05/30/19 13:00 pain lidocaine AdvReac Nausea, Verified 05/30/19 13:00 low BP meloxicam AdvReac GERD, Verified 05/30/19 13:00 abdominal pain mercury (elemental) AdvReac Unknown Verified 05/30/19 13:00 metronidazole [From Flagyl] AdvReac stomach Verified 05/30/19 13:00 pain naproxen AdvReac stomach Verified 05/30/19 13:00 pain pantoprazole [From Protonix] AdvReac GERD, Verified 05/30/19 13:00 diarrhea sulfite AdvReac Unknown Verified 05/30/19 13:00 Review of Systems - Constitutional Constitutional: reports: Fatigue, Weakness - Cardiovascular Cariovascular: reports: Irregular heart rate, Exertional dyspnea, Decr. exercise tolerance - Gastrointestinal Gastrointestinal: reports: Diarrhea. denies: Abdominal pain, Abdominal distention, Constipation, Change in bowel habits, Black stools, Bloody stools, Nausea, Coffee grounds emesis, Reflux/heartburn - All Other Systems All Other Systems: reports: Reviewed and negative Exam - Vital Signs Reviewed Vital Signs: Yes Vital Signs: Vital Signs x48h Temp Pulse Pulse Resp BP BP Pulse Ox 06/01/19 11:44 134/67 H 06/01/19 08:19 90 105/50 L 06/01/19 08:15 37 C 89 20 75/53 L 96 06/01/19 05:40 107/63 - Physical Exam General Appearance: positive: No acute distress, Alert Eyes Bilateral: positive: Normal inspection, PERRL, EOMI ENT: positive: ENT inspection nml, Pharynx nml Neck: positive: Nml inspection Respiratory: positive: Chest non-tender Cardiovascular: positive: Irregularly irregular Peripheral Pulses: positive: 0 Abdomen: positive: Non-tender, No organomegaly, Nml bowel sounds, No distention Conclusion and Plan - Lab Results Laboratory Results 06/01/19 11:47: Troponin I High Sens 8.6 06/01/19 11:47: Potassium 3.1 L 06/01/19 05:25: Troponin I High Sens 9.7 06/01/19 05:25: Phosphorus 4.6 06/01/19 05:25: B-Natriuretic Peptide 229 H 06/01/19 05:25: Sodium 137, Potassium 3.1 L, Chloride 101, Carbon Dioxide 26, Anion Gap 10.0, BUN 12, Creatinine 0.9, Estimated GFR (MDRD) 61 L, Glucose 105 H, Calcium 8.6, Magnesium 1.8 05/31/19 05:25: B-Natriuretic Peptide 470 H 05/31/19 05:25: Sodium 142, Potassium 3.5, Chloride 105, Carbon Dioxide 24, Anion Gap 13.0, BUN 10, Creatinine 0.9, Estimated GFR (MDRD) 61 L, Glucose 111 H, Calcium 9.5, Magnesium 2.0 05/30/19 13:40: Troponin I High Sens 2.7 05/30/19 13:40: B-Natriuretic Peptide 445 H 05/30/19 13:40: Sodium 138, Potassium 4.0, Chloride 103, Carbon Dioxide 23, Anion Gap 12.0, BUN 11, Creatinine 0.9, Estimated GFR (MDRD) 61 L, Glucose 141 H, Calcium 9.8, Total Bilirubin 1.2 H, AST 21, ALT 17, Alkaline Phosphatase 34 L, Total Protein 6.8, Albumin 3.9, Globulin 2.9, Albumin/Globulin Ratio 1.3, Lipase 35 05/30/19 13:40: WBC 6.8, RBC 3.99 L, Hgb 11.9 L, Hct 36.9 L, MCV 92.5, MCH 29.8, MCHC 32.2, RDW 15.1 H, Plt Count 261, MPV 8.8, Neut # (Auto) 4.8, Lymph # (Auto) 1.3 L, [place] # (Auto) 0.5, Eos # (Auto) 0.1, Baso # (Auto) 0.1, Absolute Nucleated RBC 0.00, Nucleated RBC % 0.0 - Diagnostic Imaging Results Diagnostic Imaging Results Comments: CXR 05/31/2019 Bilateral pleural effusions without consolidation - Diagnosis Diagnosis: Dysphagia - Plan Plan: Since Nga had a full breakfast this morning, we will plan to proceed with EGD tomorrow. We have discussed the risks and benefits of the procedure. She will sign a consent in the AM.
[2019-06-01] MEDS: POTASSIUM CHLOR 10 MEQ/100 ML 10 MEQ/100 ML BAG IV SCH ×4 (14:37→18:18)
[2019-06-01] MEDS ORDERED: APIXABAN 5 MG TABLET PO SCH (21:00)
[2019-06-01] MEDS ORDERED: diltiaZEM 30 MG TABLET PO ONE (23:00)
[2019-06-02] MEDS: SODIUM CHLORIDE FLUSH 0.9% 10 ML SYRINGE IVP SCH ×2 (02:25→09:30)
[2019-06-02 06:39] LABS: CALCIUM 9.3 mg/dL (8.5-10.3); CREATININE 0.9 mg/dL (0.4-1.0); MAGNESIUM 2.3 mg/dL (1.7-2.8)
[2019-06-02] MEDS ORDERED: LIDO GARGLE 30 ML BOTTLE ONE (07:37)
--- NOTE | 2019-06-02 07:49 | ANESTHESIA ---
Pre-Anesthesia VS, & Labs - Diagnosis Diagnosis Dysphagia - Procedure EGD Vital Signs: Temp Pulse Resp BP Pulse Ox 36.6 C 102 H 18 122/72 94 06/02/19 04:59 06/02/19 04:59 06/02/19 04:59 06/02/19 06:05 06/02/19 04:59 Height 5 ft 9 in Weight (kg) 102.5 kg Body Mass Index 33.8 - NPO >8 hours - Is Patient ?: No - Lab Results Current Lab Results: Laboratory Tests 06/02/19 05:55: Sodium 138, Potassium 3.6, Chloride 101, Carbon Dioxide 25, Anion Gap 12.0, BUN 11, Creatinine 0.9, Estimated GFR (MDRD) 61 L, Glucose 114 H , Calcium 9.3, Magnesium 2.3 06/01/19 11:47: Troponin I High Sens 8.6 06/01/19 11:47: Potassium 3.1 L 06/01/19 05:25: Troponin I High Sens 9.7 06/01/19 05:25: Phosphorus 4.6 06/01/19 05:25: B-Natriuretic Peptide 229 H 06/01/19 05:25: Sodium 137, Potassium 3.1 L, Chloride 101, Carbon Dioxide 26, Anion Gap 10.0, BUN 12, Creatinine 0.9, Estimated GFR (MDRD) 61 L, Glucose 105 H , Calcium 8.6, Magnesium 1.8 05/31/19 05:25: B-Natriuretic Peptide 470 H 05/31/19 05:25: Sodium 142, Potassium 3.5, Chloride 105, Carbon Dioxide 24, Anion Gap 13.0, BUN 10, Creatinine 0.9, Estimated GFR (MDRD) 61 L, Glucose 111 H , Calcium 9.5, Magnesium 2.0 05/30/19 13:40: Troponin I High Sens 2.7 05/30/19 13:40: B-Natriuretic Peptide 445 H 05/30/19 13:40: Sodium 138, Potassium 4.0, Chloride 103, Carbon Dioxide 23, Anion Gap 12.0, BUN 11, Creatinine 0.9, Estimated GFR (MDRD) 61 L, Glucose 141 H , Calcium 9.8, Total Bilirubin 1.2 H, AST 21, ALT 17, Alkaline Phosphatase 34 L, Total Protein 6.8, Albumin 3.9, Globulin 2.9, Albumin/Globulin Ratio 1.3, Lipase 35 05/30/19 13:40: WBC 6.8, RBC 3.99 L, Hgb 11.9 L, Hct 36.9 L, MCV 92.5, MCH 29.8, MCHC 32.2, RDW 15.1 H, Plt Count 261, MPV 8.8, Neut # (Auto) 4.8, Lymph # (Auto) 1.3 L, [place] # (Auto) 0.5, Eos # (Auto) 0.1, Baso # (Auto) 0.1, Absolute Nucleated RBC 0.00, Nucleated RBC % 0.0 Fish Bones: 05/30/19 13:40 06/02/19 05:55 Home Medications and Allergies Home Medications: Ambulatory Orders Metoprolol Tartrate [Lopressor] 25 mg PO BID 05/30/19 Active Medications Diltiazem HCl (Cardizem) 60 mg PO 0700,1230,1700 [facility] Last Admin: 06/02/19 06:05 Dose: 60 mg Famotidine (Pepcid) 20 mg PO BID [facility] Last Admin: 06/01/19 20:31 Dose: 20 mg Lactobacillus Rhamnosus (Culturelle) 1 cap PO DAILY [facility] Last Admin: 06/01/19 08:23 Dose: 1 cap Metoprolol Succinate (Toprol Xl) 25 mg PO 1200 [facility] Multivitamins/Minerals (Theragran M) 1 tab PO DAILYWM [facility] Last Admin: 06/01/19 08:23 Dose: 1 tab Nystatin (Nystop) 1 applic TOP BID [facility] Last Admin: 06/01/19 20:31 Dose: 1 applic Potassium Chloride (K-Dur) 20 meq PO DAILYWM [facility] Prochlorperazine Edisylate (Compazine Inj) 10 mg IVP Q6HR PRN PRN Reason: Nausea / Vomiting Sodium Chloride (Normal Saline Flush 0.9%) 10 ml IVP PRN PRN PRN Reason: NEEDED PER PROVIDER ORDERS Last Admin: 05/31/19 06:48 Dose: 10 ml Sodium Chloride (Normal Saline Flush 0.9%) 10 ml IVP 0100,0900,1700 [facility] Last Admin: 06/02/19 02:25 Dose: 10 ml Spironolactone (Aldactone) 25 mg PO DAILY [facility] Last Admin: 06/01/19 08:23 Dose: 25 mg Apixaban [Eliquis] 5 mg PO BID 05/03/19 Metoprolol Tartrate [Lopressor] 25 mg PO BID 05/30/19 Allergies/Adverse Reactions: Allergies Allergy/AdvReac Type Severity Reaction Status Date / Time Penicillins Allergy Hives Verified 05/30/19 13:00 aluminum AdvReac Unknown Verified 05/30/19 13:00 cephalexin [From Keflex] AdvReac stomach Verified 05/30/19 13:00 pain ciprofloxacin [From Cipro] AdvReac stomach Verified 05/30/19 13:00 pain clindamycin AdvReac Nausea Verified 05/30/19 13:00 codeine AdvReac Nausea Verified 05/30/19 13:00 erythromycin base AdvReac diarrhea, Verified 05/30/19 13:00 bladder pain formaldehyde AdvReac Unknown Verified 05/30/19 13:00 hydrocodone [From Vicodin] AdvReac GERD, Verified 05/30/19 13:00 abdominal pain ibuprofen [From Advil] AdvReac stomach Verified 05/30/19 13:00 pain lidocaine AdvReac Nausea, Verified 05/30/19 13:00 low BP meloxicam AdvReac GERD, Verified 05/30/19 13:00 abdominal pain mercury (elemental) AdvReac Unknown Verified 05/30/19 13:00 metronidazole [From Flagyl] AdvReac stomach Verified 05/30/19 13:00 pain naproxen AdvReac stomach Verified 05/30/19 13:00 pain pantoprazole [From Protonix] AdvReac GERD, Verified 05/30/19 13:00 diarrhea sulfite AdvReac Unknown Verified 05/30/19 13:00 Anes History & Medical History - Anesthetic History Anesthesia Complications: reports: No previous complications - Medical History Cardiovascular: reports: Congestive heart failure, Hypertension, Atrial f ibrillation, Murmur Pulmonary: reports: Shortness of breath Gastrointestinal: reports: GERD, Chronic diarrhea Urinary: reports: Incontinence, Chronic bladder infection Neuro: reports: Other Musculoskeletal: reports: Osteoarthritis, Fibromyalgia, Chronic back pain Endocrine/Autoimmune: reports: None Blood Disorders: reports: None Skin: reports: None Smoking Status: Never smoker Psychosocial: reports: No issues indicated Other Past Medical History: restless leg - Surgical History General: Cholecystectomy, Colonoscopy, EGD, Other Eyes Ears Nose Throat (EENT): Cataracts, Tonsil/Adenoidectomy Gynecologic: Other Orthopedic: Knee replacement Results - EKG Results EKG Comparison: Reviewed EKG - Echo Results Echo Results: Report reviewed Exam General: Alert, Oriented x3, Cooperative, No acute distress Dental: Dentures full Upper, Dentures full Lower Mouth Openin Fingerbreadth Neck Mobility: Normal Mallampati classification: II Thyromental Distance: greater than 6 cm Respiratory: Lungs clear, Normal breath sounds, No respiratory distress, No accessory muscle use Cardiovascular: Other (irregular) Mental/Cognitive Status: Alert/Oriented X3, Normal for patient Plan Anesthesia Type: MAC Consent for Procedure(s) Verified and Reviewed: Yes Code Status: Attempt Resuscitation ASA classification: 3-Severe systemic disease Is this case an emergency?: No
[2019-06-02] MEDS ORDERED: POTASSIUM CHLORIDE 20 MEQ TABLET PO SCH (08:00)
[2019-06-02] MEDS ORDERED: PROPOFOL 200 MG/20 ML VIAL IVP ONE (08:15)
[2019-06-02] MEDS ORDERED: LACTATED RINGERS 1,000 ML IV ONE (08:43)
--- NOTE | 2019-06-02 08:51 | PROVIDER PROGRESS NOTE ---
Assessment/Plan - Problem List (1) Dysphagia Qualifiers: Dysphagia type: unspecified Qualified Code(s): R13.10 - Dysphagia, unspecified Assessment/Plan: etiology unclear; suspect dysmotility,either primary or reflux induced but ddx includes stricture, benign or malignant, inflammation, EoE, etc. Plan: EGD with poss biopsy, dilatation today. PAR conf and consent obtained. - Current Meds Current Meds: Current Medications Generic Name Dose Route Start Last Admin Trade Name Freq PRN Reason Stop Dose Admin Diltiazem HCl 60 mg 06/02/19 07:00 06/02/19 06:05 Cardizem PO 60 mg 0700,1230,1700 TAY Administration Famotidine 20 mg 05/30/19 21:00 06/01/19 20:31 Pepcid PO 20 mg BID TAY Administration Lactobacillus Rhamnosus 1 cap 06/01/19 09:00 06/01/19 08:23 Culturelle PO 1 cap DAILY TAY Administration Multivitamins/Minerals 1 tab 06/01/19 08:00 06/01/19 08:23 Theragran M PO 1 tab DAILYWM TAY Administration Nystatin 1 applic 05/30/19 23:45 06/01/19 20:31 Nystop TOP 1 applic BID TAY Administration Sodium Chloride 10 ml 05/30/19 17:51 05/31/19 06:48 Normal Saline Flush 0.9% IVP 10 ml PRN PRN Administration NEEDED PER PROVIDER ORDERS Sodium Chloride 10 ml 05/31/19 01:00 06/02/19 02:25 Normal Saline Flush 0.9% IVP 10 ml 0100,0900,1700 TAY Administration Spironolactone 25 mg 05/31/19 09:08 06/01/19 08:23 Aldactone PO 25 mg DAILY TAY Administration - Lab Result Lab results reviewed: Yes Fish Bone Diagrams: 05/30/19 13:40 06/02/19 05:55 - Other Other Results/Comments: last dose of apixaban per pharmacist was 05/31/19 in evening. - Additional Planning Condition/Complexity: Stable Plan Discussed with:: Patient Time Spent: 15-30 minutes (including review of records) Subjective - Subjective Patient Reports: Other (c/o dsyphagia for pills, grapes, and lettuce; prior EGD 4-5 yrs ago with uncertain results; hx GERD with PPI therapy) Objective Vital Signs: Vital Signs - 24 hr 06/01/19 06/01/19 06/01/19 11:44 13:26 15:43 Temperature 36.8 C 36.5 C Heart Rate [ 91 Brachial] Heart Rate [ 90 Monitoring electrodes] Respiratory 16 16 Rate Blood Pressure 134/67 H Blood Pressure 127/57 L 120/65 [Right Brachial artery] O2 Saturation 93 98 06/01/19 06/01/19 06/02/19 18:02 20:03 00:46 Temperature 36.4 C L Heart Rate [ Brachial] Heart Rate [ 94 77 Monitoring electrodes] Respiratory 16 Rate Blood Pressure 106/50 L Blood Pressure 106/55 L 106/50 L [Right Brachial artery] O2 Saturation 94 06/02/19 06/02/19 06/02/19 01:00 04:59 06:05 Temperature 36.5 C 36.6 C Heart Rate [ Brachial] Heart Rate [ 95 102 H Monitoring electrodes] Respiratory 18 18 Rate Blood Pressure 122/72 Blood Pressure 114/68 122/72 [Right Brachial artery] O2 Saturation 96 94 Oxygen O2 Source Room air I&O (Last 24 Hrs): Intake and Output Totals x24h 05/31/19 06/01/19 06/02/19 23:59 23:59 23:59 Intake Total 1210 1870 Output Total 2775 3050 150 Balance -1565 -1180 -150 General: Alert, Cooperative, No acute distress Abdomen: Soft, No tenderness, No hepatospenomegaly, No masses - Results Results: Laboratory Results WBC 6.8 x10^3/uL (4.8-10.8) 05/30/19 13:40 RBC 3.99 10^6/uL (4.20-5.40) L 05/30/19 13:40 Hgb 11.9 g/dL (12.0-16.0) L 05/30/19 13:40 Hct 36.9 % (37.0-47.0) L 05/30/19 13:40 MCV 92.5 fL (81.0-99.0) 05/30/19 13:40 MCH 29.8 pg (27.0-31.0) 05/30/19 13:40 MCHC 32.2 g/dL (32.0-36.0) 05/30/19 13:40 RDW 15.1 % (12.0-15.0) H 05/30/19 13:40 Plt Count 261 10^3/uL (130-450) 05/30/19 13:40 MPV 8.8 fL (7.9-10.8) 05/30/19 13:40 Neut # (Auto) 4.8 10^3/uL (1.5-6.6) 05/30/19 13:40 Lymph # (Auto) 1.3 10^3/uL (1.5-3.5) L 05/30/19 13:40 Jewell # (Auto) 0.5 10^3/uL (0.0-1.0) 05/30/19 13:40 Eos # (Auto) 0.1 10^3/uL (0.0-0.7) 05/30/19 13:40 Baso # (Auto) 0.1 10^3/uL (0.0-0.1) 05/30/19 13:40 Absolute Nucleated RBC 0.00 x10^3/uL 05/30/19 13:40 Nucleated RBC % 0.0 /100WBC 05/30/19 13:40 Sodium 138 mmol/L (135-145) 06/02/19 05:55 Potassium 3.6 mmol/L (3.5-5.0) 06/02/19 05:55 Chloride 101 mmol/L (101-111) 06/02/19 05:55 Carbon Dioxide 25 mmol/L (21-32) 06/02/19 05:55 Anion Gap 12.0 (6-13) 06/02/19 05:55 BUN 11 mg/dL (6-20) 06/02/19 05:55 Creatinine 0.9 mg/dL (0.4-1.0) 06/02/19 05:55 Estimated GFR (MDRD) 61 (>89) L 06/02/19 05:55 Glucose 114 mg/dL (70-100) H 06/02/19 05:55 Calcium 9.3 mg/dL (8.5-10.3) 06/02/19 05:55 Phosphorus 4.6 mg/dL (2.5-4.6) 06/01/19 05:25 Magnesium 2.3 mg/dL (1.7-2.8) 06/02/19 05:55 Total Bilirubin 1.2 mg/dL (0.2-1.0) H 05/30/19 13:40 AST 21 IU/L (10-42) 05/30/19 13:40 ALT 17 IU/L (10-60) 05/30/19 13:40 Alkaline Phosphatase 34 IU/L (42-121) L 05/30/19 13:40 Troponin I High Sens 8.6 ng/L (2.3-14.8) 06/01/19 11:47 B-Natriuretic Peptide 229 pg/mL (5-100) H 06/01/19 05:25 Total Protein 6.8 g/dL (6.7-8.2) 05/30/19 13:40 Albumin 3.9 g/dL (3.2-5.5) 05/30/19 13:40 Globulin 2.9 g/dL (2.1-4.2) 05/30/19 13:40 Albumin/Globulin Ratio 1.3 (1.0-2.2) 05/30/19 13:40 Lipase 35 U/L (22-51) 05/30/19 13:40 - Procedures Procedures: Procedures RESECTION OF GALLBLADDER, PERCUTANEOUS ENDOSCOPIC APPROACH (05/16/19) ABX Reporting Has patient been on IV antibiotics over the past 48 hours?: No
--- NOTE | 2019-06-02 08:56 | PROCEDURE REPORT ---
Hospitalist Procedure Note - Procedure Note Procedure Note: EGD: visually nl; random esophageal biopsies obtained. Rec: soft diet; consider manometry if bx neg and sx persist/worsen.
[2019-06-02] MEDS: LACTOBACILLUS RHAMNOSUS GG CAPSULE PO SCH (09:29)
[2019-06-02] MEDS: MULTIVITAMIN W/MINERALS TABLET PO SCH (09:29)
[2019-06-02] MEDS: SPIRONOLACTONE 25 MG TABLET PO SCH (09:29)
[2019-06-02] MEDS: FAMOTIDINE 20 MG TABLET PO SCH (09:30)
--- NOTE | 2019-06-02 11:19 | Discharge Plan ---
Discharge Plan Problem Reviewed?: Yes Disposition: Home, Self Care Condition: Stable Prescriptions: diltiaZEM [Cardizem] 60 mg PO 0700,1230,1700 #90 tablet Enalapril Maleate 2.5 mg PO DAILY #30 tablet Furosemide [Lasix] 20 mg PO DAILY #30 tablet Metoprolol Succinate [Toprol Xl] 25 mg PO 1200 #30 tablet Potassium Chloride [K-Dur] 20 meq PO DAILYWM #30 tablet Spironolactone [Aldactone] 25 mg PO DAILY #30 tablet Diet: Soft (A soft diet was recommended by Dr. Héctor Wilkes, who performed your EGD, based on your symptoms. Also a low-salt diet is recommended to prevent fluid retention.) Activity Restrictions: Activity as Tolerated Shower Restrictions: No Assistance Devices: Walker Weight Bearing: Full Weight Instruction Topics: Apixaban oral tablets, Diltiazem tablets, Spironolactone tablets, Heart Failure Meds Control, Heart Failure Tracking Weight, Heart Failure Diet Changes, Stroke Prevent Live W Atrial Fib, Atrial Fibrillation Health Concerns: You were admitted because of a very elevated heart rate, in atrial fib, and in new congestive heart failure. Your Echocardiogram showed a weakened heart muscle, likely caused by excessively high heart rates for days or weeks. The decrease in Metoprolol dose, which you did on your own, caused this problem. Your medications have been adjusted to treat the heart rate and the congestive heart failure. Please stay on the new combination of medications and do not change the doses on your own. Plan of Treatment: Continued management of high heart rate, congestive heart failure, and stroke prophylaxis for patient in A. fib are the goals. Please take medications as listed on the current list of medications. Prescriptions for your new medications have been electronically sent to your pharmacy. Take a daily Magnesium tablet that you already have. Restart taking the Eliquis tomorrow morning (06/04/2019), then twice a day as before. Medication compliance is strongly advised. PLEASE ASK your Books Binder or PCP BEFORE CHANGING any medication doses, do not make changes on your own. You should make a written list of ALL YOUR supplements that you take and include this as your complete list of current medications. Keep this in your wallet. See your PCP in follow-up in the next 5 to 10 days, to get results of the stomach biopsies, and for any adjustments in your medications, or further stomach tests. See your Books Binder in follow-up in the next 1 to 2 weeks for further management as well. Care Goals: As above. Assessment: The patient understands. Additional Instructions or Follow Up instructions: You qualify for attending cardiac rehab and CHF classes here at the [facility] This has been ordered for you (with a referral at the time of discharge) and can also be ordered by your PCP or Books Binder. If you have new or worsening symptoms, call your PCP or Books Binder for advice or come to the ER. Follow-Up Care: [facility] - Cardiac, [facility] - CHF Classes No Smoking: If you smoke, Please STOP! Call for help. Follow-up with: Сергей Elias MD [Primary Care Provider] -
[2019-06-02] MEDS ORDERED: METOPROLOL SUCCINATE 25 MG TABLET PO SCH (12:00)
[2019-06-02] MEDS: NYSTATIN POWDER 15 GM TOP SCH (12:11)
[2019-06-02 12:17] VITALS: BP 132/70
--- NOTE | 2019-06-02 13:47 | DISCHARGE SUMMARY ---
Discharge Summary Admit Date: 05/30/19 Discharge Date: 06/02/19 Discharging Provider: Dr Geraldine Duarte Primary Care Provider: Dr Сергей Elias Code Status: Attempt Resuscitation Condition at Discharge: Stable Discharge Disposition: 01 Home, Self Care - DIAGNOSES Admission Diagnoses: 1) A.fib with RVR 2) Paroxysmal A. fib, but persistent over the last 3-months 3) New onset of CHF 4) Hypoxia 5) Medication noncompliance 6) History of hypertension Discharge Diagnoses with Status of Each Condition: See below - HPI History of Present Illness: This is a 74-year-old white female with a history of A. fib on Eliquis and hypertension (in the past on HCTZ/triamterene and lisinopril but more recently just on metoprolol tartrate). She required elective gallbladder surgery and in the preop area her EKG showed A.fib with RVR, the surgery was canceled and she required cardiology clearance for rescheduled lap andrez which was done 2 weeks ago. She remembers having an Echo for clearance and wore a 7-day heart monitor which showed rapid heart rates and her metoprolol dose required an increase. Following her lap andrez she describes needing 2 courses of nitrofurantoin for a UTI and describes decreasing her metoprolol dose from 50 mg twice daily to 25 mg twice daily on her own because of "stomach pain on the higher dose and because she does not like to take medications". She also decreased her Eliquis from 5 mg twice daily to 2.5 mg twice daily because of nosebleeds.In these 2 weeks she has noticed worsening leg edema, dyspnea on exertion and several days of orthopnea. She had no chest pain. She presented to the emergency room because of shortness of breath and was found to be in A. fib with RVR at a rate of 130, oxygen saturation in the 70% range. Her physical exam showed 4+ leg edema to the buttocks and bilateral pleural effusions on chest x-ray. She was admitted for managing A.fib with RVR likely causing new congestive heart failure. This patient goes to see a Ged Instructor, claims that she takes many vitamins and supplements but does not know their names and is very particular about checking the contents of prescription medications, concerned that she gets no untoward side effects. - CONSULTS | PROCEDURES Consultations: Dr Katlin KarelDr Héctor larry Procedures: EGD on 06/02/[address] Héctor Wilkes - [facility] Hospital Course: (1) Atrial fibrillation with RVR The patient was restarted on her higher dose of metoprolol 50 mg twice daily and it was changed to the extended release (succinate) form. She claims she had stomach upset with this therapy, and it was inadequate to control her heart rate. Heart rate was better controlled with Cardizem 60 mg 4 times a day and Metoprolol succinate 25 mg twice daily, But BP dropped to 79 systolic. Finally, there was adequate rate control (HRs of 80-90 at rest) with a decreased metoprolol succinate dose given once a day at noon plus Cardizem tid with meals and the patient wanted to change to and use Cardizem. Eliquis was resumed at 5 mg po bid and was briefly discontinued before the EGD and for 24 hours following, due to biopsy done (see below). She wanted the Eliquis decreased when she had one episode of "nosebleed" which I saw and this was 2 drops of blood on a tissue, therefore she was advised to continue this present prescribed dose of Eliquis. (2) Acute systolic heart failure This Hospitalist reached out to her Radio Sales Account Executive Dr. Finley, who read me her Echo report from one month previously which showed normal LV size and systolic function. The Echo done during this admission here, showed global LV hypokinesis with EF of 40%. She had hs-troponins done which were normal at 2, 4. She was treated with IV bid Lasix, then new Spironolactone and Lisinopril low dose were started. BNP improved from 500's to 300s. She had a 9 L negative fluid balance at the time of discharge, and the 4+ leg edema decreased to 1+ pretibial edema. He was also able to sleep in the supine position, and was discharged without needing supplemental oxygen. (3) Pericardial effusion Her EKG showed lower voltage than in the previous month therefore a pericardial effusion was suspected. The Echo did show a small circumferential pericardial effusion, suggesting that she had had fluid retention for weeks. (4) V-tach At mid-hospital stay she had a long run of monomorphic V. tach which was asymptomatic, she was sleeping. The potassium was 3.1, and was the likely the cause, since the Magnesium and troponins were normal. (5) Hypokalemia Potassium dropped to 3.1 on several mornings, related to aggressive diuresis. It was replaced Po or IV. and she was started on daily scheduled potassium while she is on diuretics. (6) Medical non-compliance I had a long discussion with her regarding the importance of compliance which she appears to have now agreed to. Since she was very interested in the details of her diagnoses and management, she was provided with reading material regarding A. fib, its risks of stroke complications and heart failure complications and overall management of systolic dysfunction. (6) Burning sensation of stomach This was one of the reasons that she provided of why her medications were decre ased or not taken. General surgery consult was requested, and she underwent an EGD. The stomach was completely normal. The esophagus was also unremarkable and several biopsies were taken to rule out Eosinophilic disease. Dr. Héctor Wilkes, who did the EGD, recommended she undergo studies for abnormal peristalsis or have further GI evaluation of her symptoms. (7) Hx of essential hypertension In the remote past the patient was on lisinopril and HCTZ/triamterene. More rece ntly she was only been on metoprolol for blood pressure control. Since being admitted and started on multiple meds for diuresis and heart rate and heart failure, she has had low blood pressures. (8) Yeast dermatitis Topical nystatin powder in the groin was started (9) Mild malnutrition As per RD, she had a 5% decrease in her expected intake and a small drop in weight. She reported recently having no appetite which is likely from bowel wall edema causing decreased appetite. - ALLERGIES Allergies/Adverse Reactions: Allergies Allergy/AdvReac Type Severity Reaction Status Date / Time Penicillins Allergy Hives Verified 05/30/19 13:00 aluminum AdvReac Unknown Verified 05/30/19 13:00 cephalexin [From Keflex] AdvReac stomach Verified 05/30/19 13:00 pain ciprofloxacin [From Cipro] AdvReac stomach Verified 05/30/19 13:00 pain clindamycin AdvReac Nausea Verified 05/30/19 13:00 codeine AdvReac Nausea Verified 05/30/19 13:00 erythromycin base AdvReac diarrhea, Verified 05/30/19 13:00 bladder pain formaldehyde AdvReac Unknown Verified 05/30/19 13:00 hydrocodone [From Vicodin] AdvReac GERD, Verified 05/30/19 13:00 abdominal pain ibuprofen [From Advil] AdvReac stomach Verified 05/30/19 13:00 pain lidocaine AdvReac Nausea, Verified 05/30/19 13:00 low BP meloxicam AdvReac GERD, Verified 05/30/19 13:00 abdominal pain mercury (elemental) AdvReac Unknown Verified 05/30/19 13:00 metronidazole [From Flagyl] AdvReac stomach Verified 05/30/19 13:00 pain naproxen AdvReac stomach Verified 05/30/19 13:00 pain pantoprazole [From Protonix] AdvReac GERD, Verified 05/30/19 13:00 diarrhea sulfite AdvReac Unknown Verified 05/30/19 13:00 - MEDICATIONS Home Medications: Ambulatory Orders Medication Instructions Recorded Confirmed Apixaban [Eliquis] 5 mg PO BID 05/03/19 05/31/19 Enalapril Maleate 2.5 mg PO DAILY #30 tablet 06/02/19 Furosemide [Lasix] 20 mg PO DAILY #30 tablet 06/02/19 Metoprolol Succinate [Toprol Xl] 25 mg PO 1200 #30 tablet 06/02/19 Potassium Chloride [K-Dur] 20 meq PO DAILYWM #30 tablet 06/02/19 Spironolactone [Aldactone] 25 mg PO DAILY #30 tablet 06/02/19 diltiaZEM [Cardizem] 60 mg PO 0700,1230,1700 #90 tablet 06/02/19 - PHYSICAL EXAM AT DISCHARGE General Appearance: positive: No acute distress, Alert Eyes Bilateral: positive: Normal inspection, EOMI ENT: positive: ENT inspection nml, No signs of dehydration Neck: positive: Nml inspection, No JVD Respiratory: positive: No respiratory distress, Breath sounds nml Cardiovascular: positive: No murmur, Irregularly irregular Abdomen: positive: Non-tender, Nml bowel sounds, Other (pannus) Skin: positive: Color nml, No rash Extremities: positive: Other (1+ pre-tibial edema) Neurologic/Psychiatric: positive: Oriented x3, Other (Non-focal) - LABS Result Diagrams: 05/30/19 13:40 06/02/19 05:55 - DIAGNOSTIC IMAGING Diagnostic Imaging Results: Final report reviewed - FOLLOW UP Follow Up: See PCP in the next 5 to 7 days for blood pressure check, BMP and magnesium check, adjustment of medications if needed. Keep the upcoming appointment with cardiology as already scheduled. - TIME SPENT Time Spent in Discharge (Minutes): 65
== END 2019-06-02 14:45 | disposition home or self-care (01) | DRG 291 ==
LOC: ED 12:39 → MS2 17:49
PROVIDERS: ADMIT Internal Medicine; ATTEND Internal Medicine
PROC: 0DB18ZX Excision of Upper Esophagus, Via Natural or Artificial Opening Endoscopic, Diagnostic (ICD-10-PCS; 2019-06-02)
PROC: 0DB38ZX Excision of Lower Esophagus, Via Natural or Artificial Opening Endoscopic, Diagnostic (ICD-10-PCS; principal; 2019-06-02 08:00)
DX: I48.91 Unspecified atrial fibrillation (principal); R09.02 Hypoxemia; I11.0 Hypertensive heart disease with heart failure; I10 Essential (primary) hypertension; R01.1 Cardiac murmur, unspecified; I50.21 Acute systolic (congestive) heart failure; E44.1 Mild protein-calorie malnutrition; I31.3 Pericardial effusion (noninflammatory); N39.0 Urinary tract infection, site not specified; I47.2 Ventricular tachycardia; I48.0 Paroxysmal atrial fibrillation; I08.1 Rheumatic disorders of both mitral and tricuspid valves; K21.0 Gastro-esophageal reflux disease with esophagitis; R13.10 Dysphagia, unspecified; B37.2 Candidiasis of skin and nail; Z68.32 Body mass index [BMI] 32.0-32.9, adult; M79.7 Fibromyalgia; G89.29 Other chronic pain; M54.9 Dorsalgia, unspecified; M19.90 Unspecified osteoarthritis, unspecified site; R32 Unspecified urinary incontinence; T44.7X6A Underdosing of beta-adrenoreceptor antagonists, initial encounter; Y92.009 Unspecified place in unspecified non-institutional (private) residence as the place of occurrence of the external cause; E87.6 Hypokalemia; T50.2X5A Adverse effect of carbonic-anhydrase inhibitors, benzothiadiazides and other diuretics, initial encounter; Y92.230 Patient room in hospital as the place of occurrence of the external cause; K52.9 Noninfective gastroenteritis and colitis, unspecified; H54.7 Unspecified visual loss; G25.81 Restless legs syndrome; Z96.659 Presence of unspecified artificial knee joint; Z79.01 Long term (current) use of anticoagulants; Z87.440 Personal history of urinary (tract) infections; Z90.49 Acquired absence of other specified parts of digestive tract
CPT/HCPCS: 36415; 71046; 80048; 80053; 83690; 83735; 83880; 84100; 84132; 84484; 85025; 93005; 93306; 96374; 96375; 97161; 99284; 99285; A9270; J7120

== ENCOUNTER 2019-07-17 14:40 | Outpatient (CLI) | payer MEDICARE, OTHER ==
[2019-07-17 16:07] VITALS: BP 100/60
--- NOTE | 2019-07-17 16:07 | SLEEP CARE CONSULTATION ---
Information from patient questionnaire entered by Vandana Wright. I have reviewed and concur with the information entered by Vandana Wright. This document represents the service I personally performed and the decisions made by me, Valerie Salinas, RN, MSN, RISK CONSULTING TREASURY DIRECTOR. 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 denies: Choking, Snoring (sleeps with head of bed up about a foot for GERD ), Gasping for air Toss, Turn, or Twitch while sleeping: No Recalls having dreams: Yes Usually gets out of bed at: 7-8:30 am (varies) Feels refreshed in the morning: Yes (mostly) Morning headache: No Sleepy or fatigued during the day: Yes (occasionally after long drives to medical appt's and PT / fatigued mostly ) Ever fallen asleep while driving: No Takes day naps: Yes (a couple times a week after computer or TV light ) Dreams during day naps: No Prior sleep studies: No - Parasomnia Symptoms Ever been unable to move upon waking from sleep: No Walks in sleep: No Talks in sleep: No Ever acted out dreams in sleep: No Ever felt weak in the knees when startled or emotional: No Bothered by creepy, crawly, restless sensations in legs: Yes (occasionally / a couple times a month/ reduced with movement) Problems with memory or concentration: Yes (occasionally with concentration) Subjective Initial [place] Sleepiness Scale score: 3 Past Medical History Past Medical History: reports: Hypertension, Dysphagia, Congestive Heart Failure, Arthritis, Arrythmia, Fibromyalgia, GERD, Other (A-Fib / physical therapy for back pain and muscle weakness ) Social History The patient's occupation is Retired. Patient is and lives in [place]. Have you smoked in the past 12 months: No Alcohol use: No Caffeine use: Yes Caffeine amount and frequency: seldom, occasionally decaf coffee Family History Family history of sleep disordered breathing: No Allergies and Home Medications Known drug allergies: Yes (see list plus nitrofurodantin ) Home medication list reviewed: Yes Allergy and home medication list: Eliquis 5 mg twice a day Cardia ER 180mg daily metoprolol succinate ER 25mg daily lasix 20mg daily Magnesium powder in cup of water HS probiotic daily digestive enzymes with meals Tyenol 500mg prn Review of Systems Weight gain over past 5 years: 20-30 Weight loss over past 5 years: 55 (since 01/2019) Cardiovascular: reports: high blood pressure, palpitations, irregular heart rate or pulse, leg or foot swelling (wears support hose, no edema on exam ), have to sleep sitting up (for reflex ), other. denies: chest pain Respiratory: reports: shortness of breath (with exertion , better with PT ). denies: wheeze, sputum production, chronic cough, other Gastrointestinal: reports: heartburn (reflux/GERD), nausea (occasionally ), abdominal pain (gall bladder removed 05/16), other (constipation occasionally). denies: difficulty swallowing (just saw emergency service restorer / feeling of fullness ), vomitting, diarrhea Urinary: reports: incontinence (wears pads ), frequency. denies: urgency, impotence, other Neurological: reports: gait or balance problems (uses a wheeled walker for back pain and now positional vertigo -seen by PCP), other (back/neck/ear issues). denies: headaches, seizure, head trauma, disorientation, speech dysfunction, fainting or unconsciousness Psychiatric: denies: Attention Deficit Hyperactivity, anxiety, depression, mood disorder, claustrophobia, other Ear/Nose/Throat: reports: nasal congestion (occasionally), sinus problems (occasionally), nose bleeds (occasionally since Eliquis ), dry mouth/throat (from RX), tonsillectomy, wisdom teeth removed. denies: hoarseness, injury to nose, other Endocrine: reports: sluggishness, too hot or cold, increased urination (from RX). denies: thyroid disease, history of goiter, excessive thirst, increased appetite, unexplained weakness, other Musculoskeletal: reports: joint pain, neck pain, back pain, joint swelling, muscle pain or cramping, mobility problems Immunologic: reports: sneezing, rash, itching, allergies to food or environment Physical Exam Blood Pressure: 100/60 Cuff size: long Heart Rate: 70 O2 Saturation: 98 Height: 5 ft 9 in Weight: 207 lb Body Mass Index: 30.5 BMI Classification: Obese HEENT: No craniofacial malformation Nostrils: patent to airflow Turbinates: normal Septum: midline Mouth and throat: narrow oropharynx Soft palate: long Hard palate: normal (covered by denture plate) Uvula: normal Uvula visualization: 25% Mallampati Class III Tongue: normal in size Tonsils: absent bilaterally Chin and jaw: normal size and position Neck: normal w/o lymphadenopathy or thyromegaly Heart: regular rate and rhythm Lungs: clear bilaterally Abdomen: soft Extremities: no edema or clubbing Neurologic: intact (grossly intact ) Impression and Plan 1. Suspected Obstructive Sleep Apnea-Hypopnea Syndrome, as suggested by a history of loud and irregular snoring, frequent awakening during the night, unrefreshed sleep, cognitive impairment, fatigue and intermittent excessive daytime sleepiness. Narrow oropharynx and obesity are common predisposing factors for obstructive sleep apnea-hypopnea syndrome. Studies have shown that about 50% of people with atrial fibrillation have obstructive sleep apnea. In addition, essential hypertension has been shown to be caused by obstructive sleep apnea. I recommend proceeding to polysomnography to confirm the diagnosis and to assess severity. If the patient has significant sleep disordered breathing, a manual CPAP titration study will also be performed to find the optimal treatment pressure. I informed the patient of what the sleep studies involve and after angie e discussion, obtained agreement to proceed. She was instructed that she would have to sleep with bed flat for the sleep study and agreed with plan. The pathophysiology of obstructive sleep apnea-hypopnea syndrome was discussed with the patient and health risks of cardiovascular and cerebrovascular disease if not treated. AASM brochure for obstructive sleep apnea-hypopnea syndrome given and reviewed. Risks of drowsy driving discussed in detail and patient advised to avoid long distance driving and to puller machine at the first sign of drowsiness. Patient agreed to plan. * Schedule polysomnography * Avoid long distance driving or driving when feeling sleepy. * Avoid alcohol, sedative and muscle relaxant around bedtime. * Attempt to lose weight. * Review instructions provided by trained office staff on how to prepare for the sleep study. * Return for follow-up after sleep study completed. Time Spent with Patient (minutes): 52 I spent 100% of this visit face to face with the patient with greater than 50% of this was spent time counseling the patient and coordination of care.
== END 2019-07-17 14:41 | disposition home or self-care (01) ==
LOC: SC 14:40
PROVIDERS: ATTEND Nurse Practitioner Family
DX: G47.10 Hypersomnia, unspecified (principal); G47.8 Other sleep disorders; R41.89 Other symptoms and signs involving cognitive functions and awareness; R06.83 Snoring; R53.83 Other fatigue; E66.9 Obesity, unspecified; Z68.30 Body mass index [BMI] 30.0-30.9, adult
CPT/HCPCS: 99204; G0463; 99212

== ENCOUNTER 2019-08-21 16:17 | Outpatient (CLI) | payer MEDICARE, OTHER ==
--- NOTE | 2019-08-21 13:54 | SLEEP CARE CONSULTATION ---
Information from patient questionnaire entered by Elisa Nieves. I have reviewed and concur with the information entered by Elisa Nieves. This document represents the service I personally performed and the decisions made by me, Valerie Salinas RN, MSN, BOMB SQUAD OFFICER. History of Present Illness Initial [place] Sleepiness Scale score: 3 Sleep Study - Results Polysomnography/Home Sleep Study results: The quality of the study is good. The patient had reduced sleep efficiency due to prolonged awakenings as.. The sleep architecture was abnormal for sleep fragmentation and reduced amount of time spent in REM sleep. Respiratory monitoring showed mild obstructive sleep apnea-hypopnea (AHI = 6.4) associated with frequent arousals, oxyhemoglobin desaturation and minimal hypoxia (dora oxygen saturation of 89%). The patient only slept supine during this study (supine AHI = 6.4; non-supine = 0.00). Snore was light in intensity. There was severe periodic leg movement of sleep contributing to the sleep fragmentation. Cardiac rhythm was atrial fibrillation. No abnormal behavior (parasomnia) observed during the night. Allergies and Home Medications Home medication list reviewed: No Physical Exam Height: 5 ft 9 in Impression and Plan 1. Obstructive Sleep Apnea-Hypopnea Syndrome, mild, with lowest oxygen saturat ion of 89%. Possibly this is the cause of the patients symptoms of frequent awakenings and fatigue. Positive pressure therapy could benefit her atrial fibrillation, hypertension and cardiac disease. As mentioned above, the patient will be started on nasal autoCPAP therapy with pressure set at 4-15 cmH2O as in lab studies are not being done due to the COVID 19 virus. A manual titration study will be completed later if unable to find optimal treatment pressure with office adjustments. Compliance guidelines also reviewed. I will have staff contact her to determine her choice of DME company. A copy of compliance guidelines will also be given by staff through the mail. Questions answered about her sleep study results from the copy that she received in the mail. 2. Periodic limb movement, severe, that did fragment patients sleep. Periodic limb movement of sleep (PLMS) is characterized by episodes of repetitive limb movements that occur during sleep and usually involve the lower limbs. The etiology is unknown but can be associated with restless leg syndrome (RLS), neuropathy, spinal cord diseases, kidney disease, rheumatological disorders, narcolepsy, obstructive sleep apnea, and REM sleep behavior disorder. Other factors that can increase PLMS and/or RLS are heredity and iron deficiency as reflected by a low serum ferritin level below 50 to 75mcg / L. Several medications can precipitate or aggravate PLMS such as selective serotonin re- uptake inhibitor antidepressants, tricyclic antidepressants, lithium, and dopamine receptor antagonists with the exception of bupropion. Caffeine can also aggravate PLMS and should be avoided. Sleep hygiene methods can also improve sleep as well as lifestyle changes such as regular exercise. She was advised how her iron deficiency stated could be a cause and to follow up with her PCP for further evaluation and treatment. Patient agreed with plan. 3. Arrhythmia. Atrial fibrillation noted on sleep study. Patient is currently under treatment. * Nasal auto CPAP therapy, pressure at 4-15 cm H2O. * Attempt to lose weight. * Avoid alcohol consumption near bedtime. - does not drink alcohol * Follow up with PCP for further evaluation of PLMS such as anemia. * The patient is again cautioned about driving until sleepiness completely resolves. * Return one month after CPAP obtained. I will assess response to therapy and compliance at that time. Visit Type: Telehealth Phone (To minimize the risk of COVOD 19 exposure, the patient consents to this visit and billing of her insurance.) Time Spent with Patient (minutes): 11 Provider Statement: I spent 100% of the Telehealth Phone Call with the patient with greater than 50% spent counseling the patient and coordination of care.
== END 2019-08-21 16:18 | disposition home or self-care (01) ==
LOC: SC 16:17
PROVIDERS: ATTEND Nurse Practitioner Family
DX: G47.33 Obstructive sleep apnea (adult) (pediatric) (principal); G47.61 Periodic limb movement disorder; I48.91 Unspecified atrial fibrillation

== ENCOUNTER 2019-08-31 16:38 | Outpatient (CLI) | payer MEDICARE, OTHER | END 2019-08-31 16:39 | disposition home or self-care (01) | LOC: COV 16:38 | PROVIDERS: ATTEND Family Medicine | DX: R06.02 Shortness of breath (principal); R06.2 Wheezing | CPT/HCPCS: 81599 ==

== ENCOUNTER 2019-10-18 13:02 | Outpatient (CLI) | payer MEDICARE, OTHER ==
--- NOTE | 2019-10-18 13:40 | XRAY Report ---
Reason: DYSPNEA Procedure Date: 10/18/2019 Accession Number: [id number] / [id number] Procedure: XR - Chest 2 View X-Ray CPT Code: 51670 Final Report FULL RESULT: PROCEDURE: Chest 2 View X-Ray INDICATIONS: DYSPNEA TECHNIQUE: 2 view(s) of the chest. COMPARISON: Chest x-ray examination dated 05.30.19 FINDINGS: Surgical changes and devices: None. Lungs and pleura: No pneumothorax. Small right greater than left pleural effusions are present. There is moderate right basilar and mild left bibasilar and bilateral perihilar density. Mediastinum: Mediastinal contours are normal. Heart size is normal. Bones and chest wall: No suspicious bony abnormalities. Soft tissues appear unremarkable. IMPRESSION: 1. Mild atypical pneumonia versus CHF, with small right greater than left pleural effusions. 2. Right basilar atelectasis versus pneumonia. Follow-up PA and lateral chest x-rays or chest CT is recommended to ensure resolution, and to exclude underlying neoplasm. Reviewed by: Jaylen Melton MD on 10/18/2019 1:39 PM PDT Approved by: Jaylen Melton MD on 10/18/2019 1:39 PM PDT Station ID: [id number]
== END 2019-10-18 13:03 | disposition home or self-care (01) ==
LOC: DI 13:02
PROVIDERS: ATTEND Physician Assistant Medical
DX: J90 Pleural effusion, not elsewhere classified (principal); R91.8 Other nonspecific abnormal finding of lung field
CPT/HCPCS: 71046

== ENCOUNTER 2019-10-23 13:25 | Outpatient (CLI) | payer MEDICARE, OTHER ==
[2019-10-23 13:48] VITALS: BP 124/70
--- NOTE | 2019-10-23 13:48 | SLEEP CARE CONSULTATION ---
Information from patient questionnaire entered by Vandana Wright. I have reviewed and concur with the information entered by Vandana Wright. This document represents the service I personally performed and the decisions made by me, Valerie Salinas, RN, MSN, ACCOUNTS PAYABLES CLERK. History of Present Illness Service Date and Time: 10/23/2019 1325 Previous diagnosis: Mild, Obstructive Sleep Apnea-Hypopnea Syndrome AHI: 6.4 (in 2019) Reason for follow up: first compliance Equipment type: CPAP Equipment obtained from: [employer] Backup mask available: Yes Prior sleep studies: Yes Year and Where: 2019 - [facility] Type of Sleep Study: Polysomnography HPI additional information: Saw ENT consultation for nasal obstruction and plugged ears. Patient states use of CPAP increased frequency of plugged ears. Review of consult reports that a tiral of Flonase for a week prior to that appointment seemed to reduce symptoms somewhat but patient indicated she stopped therapy after consult. Patient has chronic nasal obstruction especially at night, some recent hoarseness and mild dysphagia since cholecystectomy. Exam also noted TMJ with bilateral popping and grinding bilateral but patient states not uncomfortable. She is also edentulous and wears dentures. Plan was to continue use of nasal spray and to call office if symptoms not improved. Indicated that the plugged sensation of plugged ears could also be associated with her TMJ dysfunction. Hoarseness thought to be from presbycusis and voice therapy ordered. If dysphagia continues, further evaluation indicated with study. CT evaluation scheduled for evaluation for dyspnea to see if from her CHF or other cause and reports a different sensation of lung area with movement and difficulty swallowing at times, which has been reported to her provider. CPAP Compliance Data - Data Reviewed with Patient Average duration of nightly device use: .5 Compliance rate %: 0 Current pressure setting (cmH2O): 4-15 Humidity settin Heated hose settin Average residual AHI: 9.2 Average large leak: 3 min Subjective Patient concerns: reports: mask discomfort (uncomfortable pressure sensation with sinuses - tried nasal masks / pillows and full face mask but none were comfortable ), air blowing in eyes, other (stopped use due to ear plugging and arrhythmia seemed to worse as unable to sleep with the CPAP - her ears plug easily such as blowing nose). denies: aerophagia, mask leak noise, condensation in mask/hose, nasal congestion, dry mouth, nose, throat, epistaxis Current pressure setting perceived as: too high (at higher pressures) On therapy, patient: reports: other (patient unable to sleep with CPAP ) Initial [place] Sleepiness Scale score: 3 (in 2020) Current [place] Sleepiness Scale score: 2 Allergies and Home Medications Home medication list reviewed: No Review of Systems Review of systems same as previous: No (ENT consult done / see consult for details/lung CT ordered for CHF/dyspne ) Physical Exam Blood Pressure: 124/70 Heart Rate: 108 (irregular) O2 Saturation: 98 Height: 5 ft 9 in Weight: 208 lb 9.6 oz Body Mass Index: 30.8 BMI Classification: Obese Impression and Plan 1. Obstructive Sleep Apnea-Hypopnea Syndrome, mild, with poor treatment compliance and mild residual AHI that was higher than her original AHI. On CPAP therapy, the patient was unable to sleep and felt she did not feel any better. She also felt it made her arrhythmia worse and caused her ears to feel plugged. She sought an ENT for evaluation noted in HPI summary. Thus she stopped CPAP. A stop CPAP order will be made due to patient unable to tolerate to CPAP. Non CPAP treatments reviewed. She only slept on her back so it is unknown if her apnea is better or worse in non-supine position. 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 Thus the only option is to lose weight. She states she has started to lose weight. Fortunately her apnea is mild with minimal hypoxia 89% dora saturation so weight loss may resolve apnea. * Stop CPAP * Attempt to lose weight * Follow up as needed. Visit Type: In Office Time Spent with Patient (minutes): 25 Provider Statement: I spent 100% of the Face to Face Visit with the patient with greater than 50% spent counseling the patient and coordination of care.
== END 2019-10-23 13:26 | disposition home or self-care (01) ==
LOC: SC 13:25
PROVIDERS: ATTEND Nurse Practitioner Family
DX: G47.33 Obstructive sleep apnea (adult) (pediatric) (principal); E66.9 Obesity, unspecified; Z68.30 Body mass index [BMI] 30.0-30.9, adult
CPT/HCPCS: 99214; G0463; 99212

== ENCOUNTER 2019-10-26 10:03 | Outpatient (CLI) | payer MEDICARE, OTHER ==
[2019-10-26 10:25] LABS: CALCIUM 9.5 mg/dL (8.5-10.3)
[2019-10-26] MEDS ORDERED: IOVERSOL 320 100 ML VIAL IVP ONE ×2 (10:33→11:40)
--- NOTE | 2019-10-26 12:08 | CT Report ---
Reason: DYSPHAGIA Procedure Date: 10/26/2019 Accession Number: [id number] / [id number] Procedure: CT - CHEST W CPT Code: Final Report FULL RESULT: PROCEDURE: CHEST W INDICATIONS: DYSPHAGIA CONTRAST: IV CONTRAST: Optiray 320 ml: 100 PO CONTRAST: *NO PO CONTRAST TECHNIQUE: After the administration of intravenous contrast, 5 mm thick sections acquired from the pulmonary apices to the posterior costophrenic angles. 7 mm thick coronal MIP reformats were acquired. For radiation dose reduction, the following was used: automated exposure control, adjustment of mA and/or kV according to patient size. COMPARISON: CXR 10/18/2019, 05/30/2019, CT abdomen and pelvis 02/16/2019 FINDINGS: Image quality: Good, mild motion artifact. Lungs and pleura: Minimal scattered groundglass opacity which has the appearance of atelectasis. A few small calcified granuloma. Moderate right and [id number] left pleural effusions. No pneumothorax. Central and peripheral airways are patent and normal in caliber. Mediastinum: Heart size is prominent, particularly the left atrium. No pericardial effusion. No mediastinal or hilar adenopathy by size criteria. Thoracic aorta and central pulmonary arteries are normal in size. Moderate calcified atherosclerotic plaque. No central pulmonary embolism. Esophagus is normal in caliber. Question of hiatal hernia. Bones and chest wall: No suspicious bony lesions. No vertebral body compression fractures. No axillary or supraclavicular adenopathy by size criteria. Thyroid gland is unremarkable. Abdomen: Visualized upper abdominal solid organs appear normal. Upper abdominal bowel loops are normal in caliber. Probable hepatic steatosis. IMPRESSION: 1. Right greater than left moderate pleural effusions. -Ultrasound-guided thoracentesis may be helpful for further diagnosis. 2. Mild atelectasis. 3. Heart size appears enlarged, particularly the left atrium. Reviewed by: Kelvin Canada MD on 10/26/2019 12:07 PM PDT Approved by: Kelvin Canada MD on 10/26/2019 12:07 PM PDT Station ID: [id number]
== END 2019-10-26 10:04 | disposition home or self-care (01) ==
LOC: LAB 10:03 → DI 10:04
PROVIDERS: ATTEND Physician Assistant Medical
DX: J90 Pleural effusion, not elsewhere classified (principal); J98.11 Atelectasis; I51.7 Cardiomegaly; J18.9 Pneumonia, unspecified organism; R06.00 Dyspnea, unspecified
CPT/HCPCS: 36415; 71260; 80048; Q9967

== ENCOUNTER 2019-11-25 14:09 | Outpatient (CLI) | payer MEDICARE, OTHER ==
[2019-11-25 15:00] LABS: CALCIUM 9.2 mg/dL (8.5-10.3); CREATININE 0.8 mg/dL (0.4-1.0)
== END 2019-11-25 14:10 | disposition home or self-care (01) ==
LOC: LAB 14:09
PROVIDERS: ATTEND Nurse Practitioner
DX: I48.21 Permanent atrial fibrillation (principal); I50.42 Chronic combined systolic (congestive) and diastolic (congestive) heart failure; I27.20 Pulmonary hypertension, unspecified
CPT/HCPCS: 36415; 80048

== ENCOUNTER 2020-02-06 12:57 | Outpatient (CLI) | payer MEDICARE, OTHER ==
--- NOTE | 2020-02-06 17:12 | XRAY Report ---
PROCEDURE: Finger(s) LT INDICATIONS: PAINFUL LEFT THUMB TECHNIQUE: AP hand, 4 views of the left thumb finger(s) acquired. COMPARISON: None. FINDINGS: Bones: No acute fractures or dislocations. Severe degenerative changes of the interphalangeal joint of the left thumb. Moderate degenerative changes of the thumb metacarpophalangeal and first carpometa carpal joint. There are also moderate degenerative changes of the interphalangeal joints of the left second through fifth fingers most pronounced at the second distal interphalangeal and fourth proximal interphalangeal joints. No suspicious bony lesions. Soft tissues: No suspicious soft tissue calcifications. IMPRESSION: Severe left thumb interphalangeal joint osteoarthrosis. Moderate multilevel osteoarthrosis of the left hand as described above. Reviewed by: Harsh Crain MD on 02/06/2020 5:10 PM PDT Approved by: Harsh Crain MD on 02/06/2020 5:10 PM PDT Station ID: [id number]
== END 2020-02-06 12:58 | disposition home or self-care (01) ==
LOC: DI 12:57
PROVIDERS: ATTEND Internal Medicine
DX: M19.042 Primary osteoarthritis, left hand (principal)
CPT/HCPCS: 73140

== ENCOUNTER 2020-06-13 09:50 | Outpatient (CLI) | payer MEDICARE, OTHER ==
--- NOTE | 2020-06-14 09:54 | Ultrasound Report ---
LIMITED ULTRASOUND OF RIGHT BREAST: 06/13/2020 CLINICAL: Palpable right breast lump and focal pain. Comparison is made to exams dated: 06/13/2020 mammogram, 03/08/2018 mammogram, 01/31/2015 mammogram, a nd 04/07/2013 mammogram - [facility]. Color flow ultrasound of the right breast 3 o'clock and 10 o'clock regions was performed. Sams scale images of the real-time examination were reviewed. There is a benign post surgical scar in the right breast at 10 o'clock that correlates with mammograp hy and reported pain. No significant abnormalities were seen sonographically in the right breast. IMPRESSION: BENIGN There is no sonographic evidence of malignancy. There is no abnormality seen in the right breast to correspond with the pain at 3 o'clock, however, c linical correlation is recommended. A 1 year screening mammogram is recommended. This exam was interpreted at Station ID: [id number]. Electronically Signed By: Kelvin alvarez/ericka:06/13/2020 14:38:31 Ultrasound BI-RADS: 2 Benign BI-RADS CATEGORY: (2) - 2 RECOMMENDATION: (ANNUAL) - Recommend routine annual screening mammography. [id number] 1 year screening LATERALITY: (B)
--- NOTE | 2020-06-14 09:54 | Mammography Report ---
BILATERAL DIGITAL DIAGNOSTIC MAMMOGRAM 3D/2D: 06/13/2020 CLINICAL: Diffuse bilateral breast pain. Comparison is made to exams dated: 03/08/2018 mammogram, 01/31/2015 mammogram, and 04/07/2013 mammogr am - [facility]. There are scattered fibroglandular elements in both breasts. There is a stable post-surgical scar in the right breast upper outer aspect anterior depth. This cor relates to the area of reported pain. No other significant masses, calcifications, or other findings are seen in either breast. IMPRESSION: INCOMPLETE: NEEDS ADDITIONAL IMAGING EVALUATION The stable post-surgical scar in the right breast is indeterminate. An ultrasound is recommended. There is no abnormality seen in either breast to correspond with the diffuse pain in the lateral aspe ct, however, clinical correlation is recommended. This exam was interpreted at Station ID: [id number]. NOTE: For mammograms, a report in lay terms will be sent to the patient. Approximately 15% of breast malignancies will not be visualized mammographically. In the management of a palpable breast mass, a negative mammogram must not discourage biopsy of a clinically suspicious lesion. SUMMARY: Targeted ultrasound is recommended for further evaluation and will be scheduled immediately following this exam. Electronically Signed By: Kelvin alvarez/ericka:06/13/2020 14:36:04 ACR BI-RADS Category 0: Incomplete 3340F PARENCHYMAL PATTERN: (A) - The breast(s) demonstrate(s) scattered fibroglandular densities. BI-RADS CATEGORY: (0) - 0 Ultrasound [id number] Immediate follow-up LATERALITY: (R)
== END 2020-06-13 09:51 | disposition home or self-care (01) ==
LOC: DI 09:50
PROVIDERS: ATTEND Internal Medicine
DX: N64.4 Mastodynia (principal)

== ENCOUNTER 2022-11-19 20:13 | Outpatient (CLI) | payer MEDICARE, OTHER | END 2022-11-19 23:59 | disposition critical access hospital (66) | LOC: EMS 20:13 | DX: M54.50 Low back pain, unspecified (principal); M79.652 Pain in left thigh | CPT/HCPCS: A0425; A0429 ==

== ENCOUNTER 2022-11-19 20:26 | Emergency (ER) | payer MEDICARE, OTHER ==
[2022-11-19] MEDS ORDERED: MORPHINE 10 MG/ML VIAL IVP STA (21:01)
[2022-11-19 21:14] LABS: BILIRUBIN,URINE NEGATIVE (NEGATIVE); GLUCOSE, URINE (UA) NEGATIVE (NEGATIVE); KETONES,URINE (UA) NEGATIVE (NEGATIVE); LEUKOCYTE ESTERASE, URINE MODERATE (NEGATIVE); NITRITE,URINE NEGATIVE (NEGATIVE); OCCULT BLOOD,URINE TRACE-INTA (NEGATIVE); PROTEIN,URINE NEGATIVE (NEGATIVE); UROBILINOGEN,URINE 0.2 (NORMAL) E.U./dL (NORMAL)
[2022-11-19 21:16] LABS: CLARITY,URINE HAZY (CLEAR)
--- NOTE | 2022-11-19 21:19 | ED Physician Documentation ---
History of Present Illness - Stated complaint Stated Complaint: L LEG PX - Chief complaint Chief Complaint: Back Pain - History obtained from History obtained from: Patient - Additonal information Additional information: 77yF with hx afib on eliquis p/w intermittent L lower back pain radiating to L inguinal region and L thigh X 4 days. endorses increased urinary frequency. taking 650 tylenol without relief. denies fever, dysuria, abd pain, vomiting, diarrhea. +nausea when she has pain. PD PAST MEDICAL HISTORY - Past Medical History Cardiovascular: Congestive heart failure, Hypertension, Atrial fibrillation, Murmur Respiratory: Shortness of breath Neuro: Other Endocrine/Autoimmune: None GI: GERD, Chronic diarrhea : Incontinence, Chronic bladder infection HEENT: Chronic vision loss, Other Psych: None Musculoskeletal: Osteoarthritis, Fibromyalgia, Chronic back pain Derm: None - Past Surgical History Past Surgical History: Yes General: Cholecystectomy, Colonoscopy, EGD, Other Ortho: Knee replacement /[employer]: Other HEENT: Cataracts, Tonsil/Adenoidectomy - Present Medications Home Medications: Ambulatory Orders Medication Instructions Recorded Confirmed Apixaban [Eliquis] 5 mg PO BID 05/03/19 05/31/19 Enalapril Maleate 2.5 mg PO DAILY #30 tablet 06/02/19 Furosemide [Lasix] 20 mg PO DAILY #30 tablet 06/02/19 Metoprolol Succinate [Toprol Xl] 25 mg PO 1200 #30 tablet 06/02/19 Potassium Chloride [K-Dur] 20 meq PO DAILYWM #30 tablet 06/02/19 Spironolactone [Aldactone] 25 mg PO DAILY #30 tablet 06/02/19 diltiaZEM [Cardizem] 60 mg PO 0700,1230,1700 #90 tablet 06/02/19 Nitrofurantoin [Macrobid] 100 mg PO BID #14 tab 11/20/22 - Allergies Allergies/Adverse Reactions: Allergies Allergy/AdvReac Type Severity Reaction Status Date / Time Penicillins Allergy Hives Verified 11/19/22 20:37 aluminum AdvReac Unknown Verified 11/19/22 20:37 cephalexin [From Keflex] AdvReac stomach Verified 11/19/22 20:37 pain ciprofloxacin [From Cipro] AdvReac stomach Verified 11/19/22 20:37 pain clindamycin AdvReac Nausea Verified 11/19/22 20:37 codeine AdvReac Nausea Verified 11/19/22 20:37 erythromycin base AdvReac diarrhea, Verified 11/19/22 20:37 bladder pain formaldehyde AdvReac Unknown Verified 11/19/22 20:37 hydrocodone [From Vicodin] AdvReac GERD, Verified 11/19/22 20:37 abdominal pain ibuprofen [From Advil] AdvReac stomach Verified 11/19/22 20:37 pain lidocaine AdvReac Nausea, Verified 11/19/22 20:37 low BP meloxicam AdvReac GERD, Verified 11/19/22 20:37 abdominal pain mercury (elemental) AdvReac Unknown Verified 11/19/22 20:37 metronidazole [From Flagyl] AdvReac stomach Verified 11/19/22 20:37 pain naproxen AdvReac stomach Verified 11/19/22 20:37 pain pantoprazole [From Protonix] AdvReac GERD, Verified 11/19/22 20:37 diarrhea sulfite AdvReac Unknown Verified 11/19/22 20:37 - Social History Does the pt smoke?: No Smoking Status: Never smoker Does the pt drink ETOH?: No Does the pt have substance abuse?: No - Immunizations Immunizations are current?: Yes - POLST Patient has POLST: No PD ED PE NORMAL - Vitals Vital signs reviewed: Yes - General General: Alert and oriented X 3, No acute distress, Well developed/nourished - HEENT HEENT: Atraumatic, PERRL, EOMI - Neck Neck: Supple, no meningeal sign - Cardiac Cardiac: RRR - Respiratory Respiratory: No respiratory distress, Clear bilaterally - Abdomen Abdomen: Non tender, Non distended, Other (LLQ discomfort to palpation) - Back Back: No CVA TTP - Derm Derm: Normal color, Warm and dry - Neuro Neuro: No motor deficit, No sensory deficit - Psych Psych: Normal mood, Normal affect Results - Vitals Vitals: Vital Signs - 24 hr 11/19/22 11/19/22 11/20/22 20:25 21:41 00:21 Temperature 36.3 C L 36.7 C Heart Rate 98 100 90 Respiratory 18 16 16 Rate Blood Pressure 159/102 H 136/98 H 139/82 H O2 Saturation 96 96 100 Oxygen O2 Source Room air - Labs Labs: Laboratory Tests 11/19/22 11/19/22 11/19/22 21:03 21:20 21:20 WBC 8.6 RBC 4.39 Hgb 13.2 Hct 39.4 MCV 89.7 MCH 30.1 MCHC 33.5 RDW 12.7 Plt Count 267 MPV 8.5 Neut # (Auto) 6.8 H Lymph # (Auto) 1.2 L [place] # (Auto) 0.5 Eos # (Auto) 0.1 Baso # (Auto) 0.1 Absolute Nucleated RBC 0.00 Nucleated RBC % 0.0 Sodium 136 Potassium 4.6 Chloride 102 Carbon Dioxide 25 Anion Gap 9.0 BUN 23 H Creatinine 1.0 Estimated GFR (MDRD) 53 L Glucose 135 H Calcium 9.4 Total Bilirubin 0.8 AST 24 ALT 15 Alkaline Phosphatase 68 Total Protein 8.0 Albumin 3.9 Globulin 4.1 Albumin/Globulin Ratio 1.0 Lipase 45 Urine Color YELLOW Urine Clarity HAZY Urine pH 6.0 Ur Specific [place] 1.020 Urine Protein NEGATIVE Urine Glucose (UA) NEGATIVE Urine Ketones NEGATIVE Urine Occult Blood TRACE-INTA Urine Nitrite NEGATIVE Urine Bilirubin NEGATIVE Urine Urobilinogen 0.2 (NORMAL) Ur Leukocyte Esterase MODERATE H Urine RBC 0-5 Urine WBC >25 H Ur Squamous Epith Cells FEW Squamous Urine Bacteria Few Urine Mucus Few Strands Urine Culture Comments INDICATED PD Medical Decision Making - ED course ED course: 77yF p/w L lower back pain radiating to inguinal region X 4 days, with inability to get comfortable. Doubt DVT given patient has been appropriately anticoagulated with eliquis for "years" per her report. suspect ureteral stone given her dynamic movement on the stretcher, therefore will obtain u/a to eval for blood. She was mildly tender to LLQ on exam despite denying abd pain therefore may need to obtain CT to eval for stones, diverticulitis less likely since no diarrhea or fever. IV morphine provided without improvement so 1mg IV dilaudid was ordered. she also requested her home night dose of 100mg metoprolol which was provided. CT a/p without contrast ordered. CBC, abdominal panel benign. u/a showed occult blood and +leuk est. plan to f/u CT. CT a/p without acute findings. patient feeling better s/p dilaudid. advised outpatient f/u with pcp. rx sent for macrobid for uti. return precautions given. Departure - Departure Disposition: Home, Self Care Clinical Impression: UTI (urinary tract infection), Back pain Condition: Stable Instructions: ED UTI Cystitis Female Prescriptions: Nitrofurantoin [Macrobid] 100 mg PO BID #14 tab Comments: You were seen in the emergency department for evaluation of low back pain moving to the left groin and thigh. You do have a uti on urine testing and I [facility] a [facility]. This is a mild antibiotic and so if you experience fever with temp >100.4 then return to the ED immediately because you may need something stronger. Please follow up with your primary care provider this week and return to the ED for new or worsening symptoms or other concerns.
[2022-11-19 21:25] LABS: BASOPHILS # (AUTO) 0.1 10^3/uL (0.0-0.1); BASOPHILS % (AUTO) 0.6 %; EOSINOPHILS # (AUTO) 0.1 10^3/uL (0.0-0.7); EOSINOPHILS % (AUTO) 0.7 %; HCT - HEMATOCRIT 39.4 % (37.0-47.0); HGB - HEMOGLOBIN 13.2 g/dL (12.0-16.0); LYMPHOCYTES # (AUTO) 1.2 10^3/uL (1.5-3.5); LYMPHOCYTES % (AUTO) 14.1 %; MEAN CORPUSCULAR HEMOGLOBIN 30.1 pg (27.0-31.0); MEAN CORPUSCULAR HGB CONC 33.5 g/dL (32.0-36.0); MEAN CORPUSCULAR VOLUME 89.7 fL (81.0-99.0); MEAN PLATELET VOLUME 8.5 fL (7.9-10.8); MONOCYTES # (AUTO) 0.5 10^3/uL (0.0-1.0); MONOCYTES % (AUTO) 5.5 %; NEUTROPHILS # (AUTO) 6.8 10^3/uL (1.5-6.6); NEUTROPHILS % (AUTO) 78.8 %; PLT - PLATELET COUNT 267 10^3/uL (130-450); RED BLOOD COUNT 4.39 10^6/uL (4.20-5.40); RED CELL DISTRIBUTION WIDTH 12.7 % (12.0-15.0); WHITE BLOOD COUNT 8.6 x10^3/uL (4.8-10.8)
[2022-11-19 21:32] LABS: BACTERIA,URINE Few /HPF (None Seen); MUCUS,URINE Few Strands; RBC,URINE 0-5 /HPF (0-5); SQUAMOUS EPITHELIAL CELL,UR FEW Squamous (<= Few); WBC,URINE >25 /HPF (0-5)
[2022-11-19 21:35] LABS: ALBUMIN 3.9 g/dL (3.2-5.5); BILIRUBIN,TOTAL 0.8 mg/dL (0.2-1.0); CALCIUM 9.4 mg/dL (8.5-10.3); POTASSIUM 4.6 mmol/L (3.5-5.0)
[2022-11-19] MEDS ORDERED: HYDROmorphone 1 MG/ML CARPUJECT IVP STA (21:40)
[2022-11-19] MEDS ORDERED: METOPROLOL SUCCINATE 50 MG TABLET PO STA (21:52)
--- NOTE | 2022-11-19 23:49 | CT Report ---
PROCEDURE: ABDOMEN/PELVIS WO INDICATIONS: L back pain radiating to inguinal area, +blood ua TECHNIQUE: A CT scan of the abdomen and pelvis was performed without the use of intravenous contrast. Images we re recorded and evaluated at appropriate window settings. Reformats: coronal and sagittal. For radiat ion dose reduction, the following was used: automated exposure control, adjustment of mA and/or kV ac cording to patient size. COMPARISON: CT abdomen pelvis 02/16/2019. FINDINGS: Image quality: There is beam hardening artifact from patient's bilateral upper extremities limiting e valuation. Lung bases:There is mild atelectasis and scarring the lung bases. Heart:Heart size is mildly enlarged. ABDOMEN: Liver:Noncontrast evaluation of the liver demonstrates no definite mass lesions. Gallbladder:Surgically absent. Biliary ducts: No biliary ductal dilatation. Pancreas: Unremarkable. Spleen: Normal in size. Adrenal Glands: No adrenal nodules. Kidneys and Ureters: No hydronephrosis. Stomach and Bowel: Stomach, small bowel loops, and colon are normal in caliber and wall thickness. N o pericecal inflammatory changes to suggest appendicitis. Peritoneum: No abnormal intraperitoneal fluid. No free air. Ventral Wall: No hernia. Abdominal Nodes: No retroperitoneal or mesenteric adenopathy by size criteria. Vessels: Aorta and inferior vena cava are normal in size. PELVIS: Pelvic Organs:There are multiple exophytic uterine fibroids including densely calcified fibroids. Bladder: Unremarkable. Pelvic Nodes: No enlarged lymph nodes. Miscellaneous: No inguinal hernias. Bones: There is multilevel moderate degenerative disc disease within the lower lumbar spine. Mild fac et arthropathy also demonstrated within the lower lumbar spine. Visualized osseous structures demonst rate no suspicious lesions. IMPRESSION: 1. No definite acute intra-abdominal abnormality. Specifically, no nephrolithiasis or obstructive uro asia. Reviewed by: Guanako Bassett MD on 11/19/2022 11:48 PM PDT Approved by: Guanako Bassett MD on 11/19/2022 11:48 PM PDT Station ID: [id number]
[2022-11-20] MEDS ORDERED: ONDANSETRON ODT 4 MG Prepack 2 TL PRN (00:22)
[2022-11-20 00:27] VITALS: BP 139/82
== END 2022-11-20 01:05 | disposition home or self-care (01) ==
LOC: EDUNIT# → ED 20:26
DX: N39.0 Urinary tract infection, site not specified (principal)
CPT/HCPCS: 36415; 74176; 80053; 81001; 83690; 85025; 87086; 96374; 96375; 99284; A9270; J1170

== ENCOUNTER 2022-11-30 13:58 | Outpatient (CLI) | payer MEDICARE, OTHER ==
--- NOTE | 2022-12-01 09:47 | Mammography Report ---
BILATERAL DIGITAL SCREENING MAMMOGRAM 3D/2D: 11/30/2022 CLINICAL: Routine screening. Comparison is made to exams dated: 06/13/2020 mammogram, 03/08/2018 mammogram, and 01/31/2015 mammogra m - [facility]. There are scattered areas of fibroglandular density in both breasts (category b / 25%-50% glandular t issue). There are benign post operative findings and biopsy clip in the right breast. No significant masses, calcifications, or other findings are seen in either breast. There has been no significant interval change. IMPRESSION: BENIGN There is no mammographic evidence of malignancy. A 1 year screening mammogram is recommended. This exam was interpreted at Station ID: [id number]. NOTE: For mammograms, a report in lay terms will be sent to the patient. Approximately 15% of breast malignancies will not be visualized mammographically. In the management of a palpable breast mass, a negative mammogram must not discourage biopsy of a clinically suspicious lesion. Electronically Signed By: Kelvin alvarez/ericka:11/30/2022 16:20:27 letter sent: No_Letter ACR BI-RADS Category 2: Benign Finding(s) 3342F PARENCHYMAL PATTERN: (A) - The breast(s) demonstrate(s) scattered fibroglandular densities. BI-RADS CATEGORY: (2) - 2 Mammogram [id number] 1 year screening LATERALITY: (B)
== END 2022-11-30 13:59 | disposition home or self-care (01) ==
LOC: DI 13:58
PROVIDERS: ATTEND Internal Medicine
DX: Z12.31 Encounter for screening mammogram for malignant neoplasm of breast (principal)

== ENCOUNTER 2022-12-17 14:32 | Outpatient (CLI) | payer MEDICARE, OTHER ==
--- NOTE | 2022-12-17 16:12 | MRI Report ---
PROCEDURE: LUMBAR SPINE WO INDICATIONS: BACK PAIN, ANESTHESIA OF SKIN TECHNIQUE: Noncontrast sagittal T1 spin echo and T2 fast echo, sagittal STIR, axial T1 and T2 fast spin echo thr ough the lumbar spine. In cases with scoliosis, additional coronal T2 fast spin echo may be performe d. COMPARISON: None. FINDINGS: Image quality: Excellent. Alignment and Curvature: Trace anterolisthesis of L2 on L3. Trace retrolisthesis of L5 on S1. Bone Marrow: Marrow is of normal overall signal. No acute vertebral body compression fractures. Spinal Cord: Conus medullaris terminates at the L1 level. Visualized cord demonstrates normal signa l and size. Paraspinous Soft Tissues: No paravertebral masses. T12-L1: Normal in appearance. L1-L2: Mild facet hypertrophy. No canal stenosis or foraminal stenosis. L2-L3: There is a acute appearing superiorly extruded disc fragment in the right lateral recess behin d L2, and extending into the left foramen, obliterating the left L2 nerve root in the left lateral re cess and impinging on the left L2 nerve root in the left foramen. The disc fragment measures approxim ately 2.0 x 1.0 x 1.0 cm. L3-L4: Moderately severe chronic disc height loss. Minimal disc bulge. Facet hypertrophy. Epidural lipomatosis. Mild canal stenosis. No significant foraminal stenosis. L4-L5: Severe chronic disc height loss. Mild facet hypertrophy. Mild canal stenosis. No significant foraminal stenosis. L5-S1: Right paracentral osteophyte results in a degree of impingement on the right S1 nerve root i n the right lateral recess. There is mild central canal stenosis. There is no significant foraminal s tenosis. IMPRESSION: 1. A large superiorly extruded disc fragment in the left lateral recess behind L2, emanates from L2-L 3, obliterating the left L2 nerve root in the left lateral recess and impinging on the left L2 nerve root in the left foramen. This is likely a relatively acute free fragment. 2. Multilevel facet arthropathy. 3. Mild canal stenosis at L3-L4 and L4-L5 and L5-S1. 4. At L5-S1, right paracentral osteophyte results in a degree of right S1 nerve root impingement in t he right lateral recess. Reviewed by: Washington Ambrose MD on 12/17/2022 4:11 PM PDT Approved by: Washington Ambrose MD on 12/17/2022 4:11 PM PDT Station ID: [id number]
== END 2022-12-17 14:33 | disposition home or self-care (01) ==
LOC: DI 14:32
PROVIDERS: ATTEND Internal Medicine
DX: R20.0 Anesthesia of skin (principal); M51.26 Other intervertebral disc displacement, lumbar region; M47.816 Spondylosis without myelopathy or radiculopathy, lumbar region; M48.061 Spinal stenosis, lumbar region without neurogenic claudication; M48.07 Spinal stenosis, lumbosacral region; M25.78 Osteophyte, vertebrae

== ENCOUNTER 2023-07-03 11:53 | Outpatient (CLI) | payer MEDICARE, OTHER ==
--- NOTE | 2023-07-03 13:39 | XRAY Report ---
PROCEDURE: Chest 2V INDICATIONS: DYSONEA TECHNIQUE: 2 views of the chest were acquired. COMPARISON: 2 views of the chest dated 10/18/2019 FINDINGS: Surgical changes and devices: None. Lungs and pleura: No pleural effusions or pneumothorax. Lungs are clear. Mediastinum: Mediastinal contours appear normal. Heart size is normal. Bones and chest wall: No suspicious bony lesions. Overlying soft tissues appear unremarkable. IMPRESSION: No acute cardiopulmonary process. Reviewed by: Katlin Bourgeois MD on 07/03/2023 1:38 PM PST Approved by: Katlin Bourgeois MD on 07/03/2023 1:38 PM PST Station ID: [id number]
== END 2023-07-03 11:54 | disposition home or self-care (01) ==
LOC: DI 11:53
PROVIDERS: ATTEND Internal Medicine
DX: R06.00 Dyspnea, unspecified (principal); I50.9 Heart failure, unspecified

== ENCOUNTER 2023-07-16 10:28 | Outpatient (CLI) | payer MEDICARE, OTHER | END 2023-07-16 10:29 | disposition home or self-care (01) | LOC: NS 10:28 | PROVIDERS: ATTEND Internal Medicine | DX: E11.9 Type 2 diabetes mellitus without complications (principal); Z71.3 Dietary counseling and surveillance; Z71.89 Other specified counseling | CPT/HCPCS: 97802 ==